=== PATIENT | female | born 1955 | race Caucasian/White ===

== ENCOUNTER 2024-09-27 23:24 | Inpatient (IN) | payer MEDICARE, OTHER, SELFPAY ==
--- NOTE | 2024-09-27 | ECG_ITS ---
Test Reason : LETHARGIC Blood Pressure : */* mmHG Vent. Rate : 91 BPM Atrial Rate : 91 BPM P-R Int : 168 ms QRS Dur : 94 ms QT Int : 360 ms P-R-T Axes : 63 -26 56 degrees QTcB Int : 442 ms Normal sinus rhythm Normal ECG No previous ECGs available Referred By: Generic ED Physician Electronically Signed By: FRANCISCO CRUZ MD
--- NOTE | ~2024-09-27 | XR_ITS ---
CLINICAL HISTORY: ams, weakness 1 view chest x-ray Comparison: None Findings: The lungs are clear. Normal size heart. No acute fracture. IMPRESSION: 1. No acute findings. This document has been electronically signed by: Erasmo Domingo MD on 09/28/2024 00:39:51
--- NOTE | ~2024-09-27 | CT_ITS ---
CLINICAL HISTORY: AMS, weakness CT head without contrast Comparison: None Findings: No intracranial hemorrhage, mass effect or midline shift. There is encephalomalacia in the right frontal lobe with ex vacuo dilatation of the right frontal horn. Mild cerebral atrophy and compensatory ventriculomegaly. Mild low attenuation in the periventricular white matter consistent with chronic small-vessel ischemic gliosis. Mucosal thickening of the maxillary and ethmoid cells mucosal thickening of the sphenoid sinuses. The orbits are within normal limits. There is no acute fracture. IMPRESSION: 1. No acute intracranial findings. 2. Encephalomalacia in the right frontal lobe consistent with prior stroke. This document has been electronically signed by: Erasmo Domingo MD on 09/28/2024 00:48:50
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
[2024-09-27 23:45] VITALS: BP 115/60; BP 123/48; PULSE 92; PULSE 93; RESP 22; TEMP 37.2; O2SAT 92; O2SAT 93; BMI 29.3
[2024-09-28] VITALS (11 sets, daily range): BP systolic 105–134; BP diastolic 38–60; PULSE 78–121; RESP 18–24; TEMP 36.9–37.6; O2SAT 94–98
[2024-09-28 00:11] LABS: MANUAL DIFF FLAG NO
[2024-09-28 00:15] LABS: Basophils Percent Auto 0.2 % (0-2); Eosinophils Percent Auto 0.5 % (0-4); Hematocrit 37.4 % (37.0-47.0); Hemoglobin 12.4 g/dl (12.0-16.0); Imm Gran Abs Auto 0.04 X10*3/uL (0.00-0.03); Imm Gran Pct Auto 0.9 % (0.0-0.4); Lymphocytes Percent Auto 22.7 % (20-40); Mean Corpuscular HGB Conc 33.2 g/dl (31.0-35.0); Mean Corpuscular Hemoglobin 28.4 pg (27.0-33.0); Mean Corpuscular Volume 85.6 fL (80.0-98.0); Monocytes Absolute Auto 0.8 X10*3/uL (0.1-1.2); Monocytes Percent Auto 19.4 % (2-11); Neutrophils Absolute Auto 2.4 x10*3/uL (2.0-8.3); Neutrophils Percent Auto 56.3 % (45-73); Platelet Count 115 X10*3/uL (160-400); Red Blood Count 4.37 X10*6/uL (4.20-5.50); Red Cell Distribution Width 14.4 % (11.0-16.0); White Blood Count 4.2 X10*3/uL (4.8-10.8)
[2024-09-28 00:28] LABS: Ammonia 49 umol/L (13-55)
[2024-09-28 00:29] LABS: INTERNATIONAL NORM RATIO 1.2 (0.9-1.1); Prothrombin Time 13.5 SEC (10.9-12.4)
[2024-09-28 00:36] LABS: Lactic Acid 1.5 mmol/L (0.5-2.0)
[2024-09-28 00:38] LABS: Alanine Aminotransferase 37 U/L (0-31); Albumin Level 3.5 g/dL (3.5-5.0); Alkaline Phosphatase 55 U/L (39-117); Anion Gap 13 (12-20); Aspartate Amino Transferase 82 U/L (5-31); Bilirubin Total 0.4 mg/dL (0.0-1.0); Blood Urea Nitrogen 17 mg/dL (9-16); Calcium 7.8 mg/dL (8.4-10.2); Carbon Dioxide 22 mmol/L (22-29); Chloride 112 mmol/L (96-108); Creatinine Clr Calc Pharmacy 69.2; Estimated Glomerular Filt Rate > 60; Ethanol < 10 mg/dL; Glucose Random 88 mg/dL (60-115); Lipase 31 U/L (8-78); Magnesium 2.1 mg/dL (1.6-2.6); Potassium 3.6 mmol/L (3.3-5.1); Sodium 143 mmol/L (135-145); Total Protein 6.2 g/dL (6.5-8.0)
[2024-09-28 00:40] LABS: Acetaminophen LAB < 3 mcg/mL (<30); Salicylate < 5.0 mg/dL (15-30)
[2024-09-28 00:59] LABS: Influenza A PCR POSITIVE (Negative); Influenza B PCR NEGATIVE (Negative); Resp Syncy Virus RNA Qual PCR NEGATIVE (Negative); SARS COV2 PCR INHOUSE NEGATIVE (Negative)
--- NOTE | 2024-09-28 02:06 | PM.IMHP ---
History of Present Illness Date of Service: 09/28/24 Attending physician on admission: Carlos Jennings Chief Complaint: Altered mental status, weakness, cough Patient is a 69-year-old female with a past medical history significant for paranoid schizophrenia, epilepsy, DVT not on anticoagulant, COPD, JENSEN no CPAP, HTN, HLD and GERD who presented to the ED from [facility] due to altered mental status, weakness, lethargy and cough. They reported the patient has been incontinent of urine starting yesterday but felt that it was not related to seizures or more likely related to weakness due to illness. Patient denies any urinary symptoms including frequency, urgency or dysuria. She is intermittently confused. She reports a productive cough, sputum color unknown. There is a subjective fever of 101 measured at [facility]. She denies any headache, rhinorrhea, sore throat, ear pain, chest pain, nausea, vomiting, abdominal pain. Patient is unable to return to [facility] until she is off of oxygen, currently requiring 2 L via nasal cannula. Review of Systems Constitutional: Constitutional: Denies body ache(s), Denies chills, Reports fatigue, Reports fever(s) and Denies headache(s) Eyes: Eyes: Denies change in vision and Denies photophobia ENT: Denies headache(s), Denies nasal congestion, Denies nasal discharge and Denies sore throat Cardiovascular: Cardiovascular: Denies chest pain, Denies rapid heart rate, Denies leg edema, Denies lightheadedness and Denies dyspnea Respiratory: Respiratory: Reports chest congestion, Reports cough, Denies pain with cough, Denies dyspnea and Denies wheezing Gastrointestinal: Gastrointestinal: Denies diarrhea, Denies nausea and Denies vomiting Genitourinary: Genitourinary: Denies hematuria, Denies dysuria, Reports urinary incontinence and Denies urinary urgency Musculoskeletal: Musculoskeletal: Denies myalgias and Denies muscle cramps Integumentary/Breasts: Skin/Breast: Denies rash Neurologic: Reports confusion, Denies headache(s) and Denies seizure-like activity Psychiatric: Psychiatric: Reports confusion Endocrine: Endocrine: Reports fatigue Hematologic/Lymphatic: Hematologic/Lymphatic: Denies easy bleeding and Denies easy bruising Allergic/Immunologic: Allergic/Immunologic: Denies wheezing [facility] Medical History (Updated 03/04/25 @ 02:12 by Bhumi Schmidt PA-C) GERD (gastroesophageal reflux disease) HLD (hyperlipidemia) HTN (hypertension) JENSEN (obstructive sleep apnea) COPD (chronic obstructive pulmonary disease) DVT (deep venous thrombosis) Epilepsy Schizophrenia Functional capacity: independent ambulation Social History Advance Directives: No Advance Directives Information Provided: Yes Do you have a plan to hurt others: No Plan Meds Allergies Allergy/AdvReac Type Severity Reaction Status Date / Time codeine Allergy Unknown Verified 09/27/24 23:49 Physical Exam Vital Signs and Narrative: Vital Signs: Last Vital Signs Temp 99.0 F 09/28/24 00:24 Pulse 92 09/28/24 00:24 Resp 23 H 09/28/24 00:24 BP 122/47 L 09/28/24 00:24 Pulse Ox 94 09/28/24 00:24 O2 Del Method Nasal Cannula 09/28/24 00:24 O2 Flow Rate 2 09/28/24 00:24 Oxygen Flow Rate 2 09/27/24 23:45 BMI result Body Mass Index 29.3 General: Alert, oriented to person and date, unaware of place, no acute distress Resp: rhonchi bilaterally, no wheezing CVS: mild tachycardia, normal rhythm GI: +BS, NT, no distention Skin: Warm, dry Neuro: Cranial nerves II-XII grossly intact bilaterally. Motor grossly intact bilaterally Extremities: No LE edema Psych: Appropriate affect Const: General: confusion Orientation/consciousness: confusion Eyes: Direct Ophthalmoscopy: No photophobia Neuro: General: confusion Results Labs 09/28/24 00:01 09/28/24 00:01 Labs: Laboratory Results - last 24 hr 09/28/24 09/28/24 09/28/24 00:01 00:02 00:17 MCV 85.6 MCH 28.4 MCHC 33.2 RDW 14.4 Plt Count 115 L MPV 10.0 Immature Gran % (Auto) 0.9 H Neut % (Auto) 56.3 Lymph % (Auto) 22.7 [place] % (Auto) 19.4 H Eos % (Auto) 0.5 Baso % (Auto) 0.2 Lymph # (Auto) 1.0 L [place] # (Auto) 0.8 Eos # (Auto) 0.0 Baso # (Auto) 0.0 Abs Immat Gran (auto) 0.04 H Absolute Neuts (auto) 2.4 Absolute Nucleated RBC 0.000 Nucleated RBC % (auto) 0.0 PT 13.5 H INR 1.2 H Anion Gap 13 Estim Creat Clear Calc 69.2 Estimated GFR > 60 Random Glucose 88 Lactic Acid 1.5 Calcium 7.8 L Magnesium 2.1 Total Bilirubin 0.4 AST 82 H ALT 37 H Alkaline Phosphatase 55 Ammonia 49 Total Protein 6.2 L Albumin 3.5 Lipase 31 Salicylates < 5.0 L Acetaminophen < 3 Ethyl Alcohol < 10 Influenza Type A (PCR) POSITIVE A Influenza Type B (PCR) NEGATIVE RSV RNA Qual (PCR) NEGATIVE SARS-CoV-2 RNA (RT-PCR) NEGATIVE Assessment and Plan (1) Sepsis: Status: Acute (2) Acute hypoxemic respiratory failure: Status: Acute (3) Metabolic encephalopathy: Status: Acute (4) Influenza A: Status: Acute Plan Patient is a 69-year-old female with a past medical history significant for paranoid schizophrenia, epilepsy, DVT not on anticoagulant, COPD, JENSEN no CPAP, HTN, HLD and GERD presented to the ED from [facility] due to altered mental status, weakness, lethargy and cough. Viral sepsis, acute hypoxic respiratory failure and acute metabolic encephalopathy secondary to influenza A - WBC 4.2 tachycardic, tachypneic and subjective fever 101, blood cultures x2 pending, lactic acid normal - chest x-ray negative - flu A positive - CT negative - ammonia normal, LFTs mildly elevated, likely fatty liver disease - UA negative - new oxygen requirement, titrate off as appropriate - start Tamiflu 75mg b.i.d. - monitor CBC and BMP Epilepsy - no evidence of recent seizure, lactic acid normal - continue Keppra 500 mg BID and Depakote 500 mg BID Schizophrenia/mood disorder - continue hydroxyzine 50 mg q.4h as needed for anxiety,, risperidone 2 mg bedtime, clozapine 100 mg at bedtime, benztropine 0.5 mg BID hx DVT - no LE edema or pleuritic chest pain - lovenox for VTE prophylaxis COPD, no acute exacerbation - no wheezing on exam JENSEN - no CPAP HTN - no home meds HLD - no home meds presumed full code, no contact info and no MOLST in transfer paperwork, pt confused, unable to determine at this time VTE prophy: lovenox Patient with sepsis, acute hypoxic respiratory failure and metabolic encephalopathy, requiring admission for at least 2 midnights stay for monitoring and titration off of oxygen, required for readmission to psychiatric facility. Quality Stroke Does the patient have a stroke diagnosis?: No VTE Prior VTE?: No VTE Risk Level:: Medical - moderate - high VTE Device Contraindication: Treatment Not Indicated VTE Drug Contraindication: N/A - Med Ordered
[2024-09-28] MEDS: Enoxaparin Sodium 40 MG/0.4 ML SYRINGE SUBCUT (03:31)
[2024-09-28] MEDS: 0.9 % Sodium Chloride 1,000 ML 999 ML IV (03:31)
[2024-09-28 03:33] LABS: Appearance Urine Clear; Color Urine Yellow; Glucose Urine UA Negative (Negative); Leukocyte Esterase Urine Small (1+) (Negative); Nitrite Urine Negative (Negative); PH 5.5 (5.0-9.0); Specific Gravity - Urine 1.025 (1.005-1.025); UMIC TRIGGER UACC YES; Urine Blood Trace (Negative); Urine Ketones 15 mg/dL (Negative); Urine Protein Trace mg/dL (Neg-Trace)
[2024-09-28 03:36] LABS: Bacteria Urine None Seen (None Seen); Hyaline Casts Urine 0-2 /LPF (0-2); UACC Culture Trigger YES; WBC Urine 21-50 /HPF (0-5)
[2024-09-28 03:48] LABS: Amphetamine Screen Urine Not Detected (Not Detect); Barbiturates, Urine Not Detected (Not Detect); Benzodiazepines Screen Urine Not Detected (Not Detect); Buprenorphine Scr Not Detected (Not Detect); Cannabinoid Screen Urine Not Detected (Not Detect); Cocaine Screen Urine Not Detected (Not Detect); Fentanyl, urine Not Detected (Not Detect); Methadone Screen, Urine Not Detected (Not Detect); Opiate Screen Urine Not Detected (Not Detect); Oxycodone Screen Urine Not Detected (Not Detect); Phencyclidine Screen Urine Not Detected (Not Detect)
[2024-09-28 05:58] LABS: MANUAL DIFF FLAG NO
[2024-09-28 06:01] LABS: Basophils Percent Auto 0.5 % (0-2); Hematocrit 35.7 % (37.0-47.0); Hemoglobin 11.5 g/dl (12.0-16.0); Imm Gran Abs Auto 0.03 X10*3/uL (0.00-0.03); Imm Gran Pct Auto 0.8 % (0.0-0.4); Lymphocytes Absolute Auto 1.2 X10*3/uL (1.2-4.9); Lymphocytes Percent Auto 29.6 % (20-40); Mean Corpuscular HGB Conc 32.2 g/dl (31.0-35.0); Mean Corpuscular Hemoglobin 27.6 pg (27.0-33.0); Mean Corpuscular Volume 85.8 fL (80.0-98.0); Mean Platelet Volume 10.1 fL (9.4-12.3); Monocytes Absolute Auto 0.7 X10*3/uL (0.1-1.2); Monocytes Percent Auto 18.6 % (2-11); Neutrophils Percent Auto 50.5 % (45-73); Platelet Count 118 X10*3/uL (160-400); Red Blood Count 4.16 X10*6/uL (4.20-5.50); Red Cell Distribution Width 14.5 % (11.0-16.0)
[2024-09-28 06:16] LABS: Anion Gap 11 (12-20); Blood Urea Nitrogen 16 mg/dL (9-16); Calcium 7.7 mg/dL (8.4-10.2); Carbon Dioxide 22 mmol/L (22-29); Chloride 114 mmol/L (96-108); Creatinine Clr Calc Pharmacy 81.5; Estimated Glomerular Filt Rate > 60; Glucose Random 81 mg/dL (60-115); Potassium 3.8 mmol/L (3.3-5.1); Sodium 143 mmol/L (135-145)
[2024-09-28] MEDS: 0.9 % Sodium Chloride Flush 3 ML SYRINGE IVFLUSH ×2 (08:45→15:42)
[2024-09-28] MEDS: Benztropine Mesylate 0.5 MG TABLET PO ×2 (08:46→21:13)
[2024-09-28] MEDS: Divalproex Sodium ER 500 MG TAB.ER.24H PO ×2 (08:46→21:14)
[2024-09-28] MEDS: Oseltamivir Phosphate 75 MG CAPSULE PO ×2 (08:46→21:13)
[2024-09-28] MEDS: levETIRAcetam 500 MG TABLET PO ×2 (08:46→21:13)
--- NOTE | 2024-09-28 10:02 | PHA.MEDREC ---
Addendum entered by Melissa Mistry RPh 09/28/24 10:12: Reviewed by [facility] Original Note: Pharmacy Consult ? Medication Reconciliation Pharmacy has completed the medication reconciliation. [facility] list from [facility]. They report patient was not continued on it during their admission (adm date 09/23/24). They also confirmed with their pharmacy that patient was not receiving it while there. Rx in claims and home med list from [facility] reports 100 mg tab - 400 mg at bedtime. Left off of med rec and will notify provider.
--- NOTE | 2024-09-28 15:40 | P.PNIM_ITS ---
Subjective Subjective Date of Service: 09/28/24 Interval History: acute metabolic encephalopathy , influenza A Review of Systems seems generlaised weak cough improving Physical Exam 2 Vital Signs: Vital Signs: Last Vital Signs Temp 99.4 F 09/28/24 15:27 Pulse 86 09/28/24 15:27 Resp 18 09/28/24 15:27 BP 116/56 L 09/28/24 15:27 Pulse Ox 97 09/28/24 15:27 O2 Del Method Nasal Cannula 09/28/24 15:27 O2 Flow Rate 2 09/28/24 15:27 Oxygen Flow Rate 2 09/27/24 23:45 BMI result Body Mass Index 29.3 Appearance: Aawke,alert ,generlaised weak cvs: rrr, [id number] res: air entry similar ,has scattered rhonchii b/l. abd: no rebound or guarding ,nt, bs present. ext pulses present , no cyanosis . neuro: axo3 , nonfocal. Objective Data Active Medications Acetaminophen (Acetaminophen 325 Mg Tablet) 975 mg PO Q6H PRN PRN Reason: Pain, Mild 1-3,fever,headache Benzonatate (Benzonatate 100 Mg Capsule) 100 mg PO TID PRN PRN Reason: Cough Benztropine Mesylate (Benztropine Mesylate 0.5 Mg Tablet) 0.5 mg PO BID [facility] Last Admin: 09/28/24 08:46 Dose: 0.5 mg Documented By: ALISON Calcium Carbonate (Calcium Carbonate 750 Mg Tab.Chew) 750 mg PO Q4H PRN PRN Reason: Heartburn Clozapine (Clozapine 100 Mg Tablet) 100 mg PO BEDTIME [facility] Stop: 10/04/24 21:01 Divalproex Sodium (Divalproex Sodium Er 500 Mg Tab.Er.24h) 500 mg PO BID [facility] Last Admin: 09/28/24 08:46 Dose: 500 mg Documented By: ALISON Enoxaparin Sodium (Enoxaparin Sodium 40 Mg/0.4 Ml Syringe) 40 mg SUBCUT Q24H [facility] Last Admin: 09/28/24 03:31 Dose: 40 mg Documented By: PATRIA Hydroxyzine HCl (Hydroxyzine Hcl 50 Mg Tablet) 50 mg PO Q4H PRN PRN Reason: Anxiety Levetiracetam (Levetiracetam 500 Mg Tablet) 500 mg PO BID [facility] Last Admin: 09/28/24 08:46 Dose: 500 mg Documented By: ALISON Magnesium Hydroxide (Milk Of Magnesia 30 Ml Oral.Susp) 30 ml PO DAILY PRN PRN Reason: Constipation Melatonin (Melatonin 3 Mg Tablet) 6 mg PO BEDTIME PRN PRN Reason: Insomnia Ondansetron HCl (Ondansetron Hcl 4 Mg/2 Ml Vial) 4 mg IVPUSH Q8H PRN PRN Reason: Nausea and Vomiting Oseltamivir Phosphate (Oseltamivir Phosphate 75 Mg Capsule) 75 mg PO BID [facility] Stop: 10/02/24 21:01 Last Admin: 09/28/24 08:46 Dose: 75 mg Documented By: ALISON Risperidone (Risperidone 2 Mg Tablet) 2 mg PO BEDTIME [facility] Sodium Chloride (0.9 % Sodium Chloride Flush 3 Ml Syringe) 3 ml IVFLUSH QSHIFT [facility] Last Admin: 09/28/24 08:45 Dose: 3 ml Documented By: ALISON Labs 09/28/24 05:39 09/28/24 05:39 Labs: Laboratory Results - last 24 hr 09/28/24 09/28/24 09/28/24 00:01 00:02 00:17 MCV 85.6 MCH 28.4 MCHC 33.2 RDW 14.4 Plt Count 115 L MPV 10.0 Immature Gran % (Auto) 0.9 H Neut % (Auto) 56.3 Lymph % (Auto) 22.7 [place] % (Auto) 19.4 H Eos % (Auto) 0.5 Baso % (Auto) 0.2 Lymph # (Auto) 1.0 L [place] # (Auto) 0.8 Eos # (Auto) 0.0 Baso # (Auto) 0.0 Abs Immat Gran (auto) 0.04 H Absolute Neuts (auto) 2.4 Absolute Nucleated RBC 0.000 Nucleated RBC % (auto) 0.0 PT 13.5 H INR 1.2 H Anion Gap 13 Estim Creat Clear Calc 69.2 Estimated GFR > 60 Random Glucose 88 Lactic Acid 1.5 Calcium 7.8 L Magnesium 2.1 Total Bilirubin 0.4 AST 82 H ALT 37 H Alkaline Phosphatase 55 Ammonia 49 Total Protein 6.2 L Albumin 3.5 Lipase 31 Urine Color Urine Appearance Urine pH Ur Specific [place] Urine Protein Urine Glucose (UA) Urine Ketones Urine Blood Urine Nitrite Ur Leukocyte Esterase Urine RBC Urine WBC Ur Squamous Epith Cells Urine Bacteria Hyaline Casts Salicylates < 5.0 L Urine Opiates Screen Ur Buprenorphine Scrn Ur Oxycodone Screen Urine Methadone Screen Urine Fentanyl Screen Acetaminophen < 3 Ur Barbiturates Screen Ur Phencyclidine Scrn Ur Amphetamines Screen U Benzodiazepines Scrn Urine Cocaine Screen U Marijuana (THC) Screen Ethyl Alcohol < 10 Influenza Type A (PCR) POSITIVE A Influenza Type B (PCR) NEGATIVE RSV RNA Qual (PCR) NEGATIVE SARS-CoV-2 RNA (RT-PCR) NEGATIVE 09/28/24 09/28/24 03:27 05:39 MCV 85.8 MCH 27.6 MCHC 32.2 RDW 14.5 Plt Count 118 L MPV 10.1 Immature Gran % (Auto) 0.8 H Neut % (Auto) 50.5 Lymph % (Auto) 29.6 [place] % (Auto) 18.6 H Eos % (Auto) 0.0 Baso % (Auto) 0.5 Lymph # (Auto) 1.2 [place] # (Auto) 0.7 Eos # (Auto) 0.0 Baso # (Auto) 0.0 Abs Immat Gran (auto) 0.03 Absolute Neuts (auto) 2.0 Absolute Nucleated RBC 0.000 Nucleated RBC % (auto) 0.0 PT INR Anion Gap 11 L Estim Creat Clear Calc 81.5 Estimated GFR > 60 Random Glucose 81 Lactic Acid Calcium 7.7 L Magnesium Total Bilirubin AST ALT Alkaline Phosphatase Ammonia Total Protein Albumin Lipase Urine Color Yellow Urine Appearance Clear Urine pH 5.5 Ur Specific [place] 1.025 Urine Protein Trace Urine Glucose (UA) Negative Urine Ketones 15 Urine Blood Trace H Urine Nitrite Negative Ur Leukocyte Esterase Small (1+) H Urine RBC 3-5 H Urine WBC 21-50 H Ur Squamous Epith Cells 6-10 Urine Bacteria None Seen Hyaline Casts 0-2 Salicylates Urine Opiates Screen Not Detected Ur Buprenorphine Scrn Not Detected Ur Oxycodone Screen Not Detected Urine Methadone Screen Not Detected Urine Fentanyl Screen Not Detected Acetaminophen Ur Barbiturates Screen Not Detected Ur Phencyclidine Scrn Not Detected Ur Amphetamines Screen Not Detected U Benzodiazepines Scrn Not Detected Urine Cocaine Screen Not Detected U Marijuana (THC) Screen Not Detected Ethyl Alcohol Influenza Type A (PCR) Influenza Type B (PCR) RSV RNA Qual (PCR) SARS-CoV-2 RNA (RT-PCR) Assessment and Plan (1) Metabolic encephalopathy: Status: Acute Assessment and Plan: 69-year-old female with a past medical history significant for paranoid schizophrenia, epilepsy, DVT not on anticoagulant, COPD, JENSEN no CPAP, HTN, HLD and GERD presented to the ED from [facility] due to altered mental status, weakness, lethargy and cough. Viral sepsis, acute hypoxic respiratory failure and acute metabolic encephalopathy secondary to influenza A WBC 4 tachycardic, tachypneic seems improved(viral sepsis seems improving). blood cultures x2 pending, lactic acid normal chest x-ray negative,flu A positive,CT negative,ammonia normal, UA negative LFTs mildly thought to be elevated sec to possible fatty liver disease. plan: - start Tamiflu 75mg b.i.d.,taper oxygen - monitor CBC and BMP Epilepsy - no evidence of recent seizure, lactic acid normal - continue Keppra 500 mg BID and Depakote 500 mg BID Schizophrenia/mood disorder - continue hydroxyzine 50 mg q.4h as needed for anxiety,, risperidone 2 mg bedtime, clozapine 100 mg at bedtime, benztropine 0.5 mg BID hx DVT - no LE edema or pleuritic chest pain - lovenox for VTE prophylaxis COPD, no acute exacerbation - no wheezing on exam JENSEN - no CPAP HTN - no home meds HLD - no home meds VTE prophy: lovenox ongoing need viral sepsis, acute hypoxic respiratory failure and metabolic encephalopathy-ongoing need for monitoring and titration off of oxygen, required for readmission to psychiatric facility. Quality Stroke Does the patient have a stroke diagnosis?: No VTE Prior VTE?: No VTE Risk Level:: Medical - moderate - high VTE Device Contraindication: Treatment Not Indicated VTE Drug Contraindication: N/A - Med Ordered
--- NOTE | 2024-09-28 15:56 | PC.NURSE ---
Pt ate breakfast and lunch with no issues. Took her morning meds whole with no issues. NSR on bedside manager monitoring, maintaining sat >94% on 2L NC O2. Pt denying any pain. Used bed duvall for urinating.
--- NOTE | 2024-09-28 15:57 | MHC.CM.PN ---
Pt. came to us from [facility] psych hosp. CM spoke to pt., she is confused, could not say where she came to hosp. from. She said she does not have any family or guardian. She is from [facility]. She could not say who her PCP is. CM called [facility], could not reach anyone there. DCP is for pt. to return to [facility]. CM to follow for DC planning.
[2024-09-28 16:12] LABS: Alanine Aminotransferase 35 U/L (0-31); Albumin Level 3.2 g/dL (3.5-5.0); Aspartate Amino Transferase 91 U/L (5-31); Bilirubin Direct 0.1 mg/dL (0.0-0.5); Bilirubin Total 0.3 mg/dL (0.0-1.0); Total Protein 5.7 g/dL (6.5-8.0)
[2024-09-28 16:22] LABS: Alkaline Phosphatase 48 U/L (39-117)
--- NOTE | 2024-09-28 20:14 | PC.NURSE ---
pt resting in stretcher, no sign of distress at the time.
--- NOTE | 2024-09-28 20:45 | MHC.EDTECH ---
Changed O2 tank
[2024-09-28] MEDS: Melatonin 3 MG TABLET 6 MG PO (21:12)
[2024-09-28] MEDS: cloZAPine 100 MG TABLET PO (21:12)
[2024-09-28] MEDS: risperiDONE 2 MG TABLET PO (21:13)
[2024-09-28] MEDS: Benzonatate 100 MG CAPSULE PO (21:13)
--- NOTE | 2024-09-28 21:18 | PC.NURSE ---
medicated per mar.
[2024-09-29] VITALS (11 sets, daily range): BP systolic 103–177; BP diastolic 37–57; PULSE 76–95; RESP 16–28; TEMP 36–38.4; O2SAT 90–97
[2024-09-29] MEDS: Enoxaparin Sodium 40 MG/0.4 ML SYRINGE SUBCUT (02:40)
[2024-09-29] MEDS: 0.9 % Sodium Chloride Flush 3 ML SYRINGE IVFLUSH ×3 (02:40→15:52)
--- NOTE | 2024-09-29 05:51 | PC.NURSE ---
pt incontinent of urine, complete bed change and per care.
[2024-09-29] MEDS: Acetaminophen 325 MG TABLET 975 MG PO ×3 (06:08→19:51)
[2024-09-29 06:09] LABS: Anion Gap 14 (12-20); Blood Urea Nitrogen 16 mg/dL (9-16); Calcium 8.5 mg/dL (8.4-10.2); Carbon Dioxide 21 mmol/L (22-29); Chloride 109 mmol/L (96-108); Creatinine Clr Calc Pharmacy 73.6; Estimated Glomerular Filt Rate > 60; Glucose Random 96 mg/dL (60-115); Potassium 4.3 mmol/L (3.3-5.1); Sodium 140 mmol/L (135-145)
--- NOTE | 2024-09-29 06:12 | PC.NURSE ---
pt oral temp 101. medicated per sep. pt given some andrew eladia.
[2024-09-29 06:26] LABS: Basophils Percent Auto 0.2 % (0-2); Hemoglobin 12.6 g/dl (12.0-16.0); Imm Gran Abs Auto 0.04 X10*3/uL (0.00-0.03); Mean Platelet Volume 11.2 fL (9.4-12.3); PLT CLUMP 1; Red Cell Distribution Width 14.3 % (11.0-16.0); SCAN SMEAR FLAG 1
[2024-09-29 06:28] LABS: Hematocrit 38.7 % (37.0-47.0); Imm Gran Pct Auto 0.8 % (0.0-0.4); Lymphocytes Absolute Auto 1.2 X10*3/uL (1.2-4.9); Lymphocytes Percent Auto 23.2 % (20-40); Mean Corpuscular HGB Conc 32.6 g/dl (31.0-35.0); Mean Corpuscular Hemoglobin 28.1 pg (27.0-33.0); Mean Corpuscular Volume 86.2 fL (80.0-98.0); Monocytes Absolute Auto 0.7 X10*3/uL (0.1-1.2); Monocytes Percent Auto 13.8 % (2-11); NRBC Pct Auto 0.4 /100WBC (0.0-0.2); Neutrophils Absolute Auto 3.3 x10*3/uL (2.0-8.3); Red Blood Count 4.49 X10*6/uL (4.20-5.50)
[2024-09-29 06:29] LABS: MANUAL DIFF FLAG NO; White Blood Count 5.3 X10*3/uL (4.8-10.8)
[2024-09-29 07:33] LABS: Platelet Count 91 X10*3/uL (160-400)
--- NOTE | 2024-09-29 09:28 | MHC.CM.PN ---
CM spoke to pt.'s contact: Carmita Russo [phone] today. Carmita was on a HCP form, but said there may be other forms around as well. She was able to give some background info on pt. Pt. was living in a rest [facility], in [place], but her mental health was not stable and she was hospitalized in that area. Carmita does not know how pt. ended up in this area. She has known pt. for some time and feels that she did not have enough support / structure to manage her mental health in the [facility]. She is in agreement with [facility] to have pt. return to [facility] [place].
[2024-09-29] MEDS: Oseltamivir Phosphate 75 MG CAPSULE PO (11:39)
[2024-09-29] MEDS: levETIRAcetam 500 MG TABLET PO (11:39)
[2024-09-29] MEDS: Benztropine Mesylate 0.5 MG TABLET PO (11:39)
[2024-09-29] MEDS: Divalproex Sodium ER 500 MG TAB.ER.24H PO (11:39)
--- NOTE | 2024-09-29 11:48 | PC.NURSE ---
Assumed care of this patient at 1100, patient looks to be sleeping on stretcher, easily arousable. AM meds given, 1 @ a time, patient need encouragement. Noted to be incontient of urine, will be changed when space available. O2 tank noted to be empty by previous RN during rounding, patient sating 90% on RA, tank replaced, sating 92 - 93%
--- NOTE | 2024-09-29 17:32 | HO.PM.IMPN ---
Subjective Subjective Date of Service: 09/29/24 Interval History: Acute hypoxemic respiratory failure, metabolic encephalopathy Review of Systems Mental status seems to be improving Still generalized weak Physical Exam Vital Signs: Vital Signs: Last Vital Signs Temp 98.7 F 09/29/24 14:32 Pulse 86 09/29/24 14:32 Resp 18 09/29/24 14:32 BP 110/38 L 09/29/24 14:32 Pulse Ox 94 09/29/24 14:32 O2 Del Method Nasal Cannula 09/29/24 14:32 O2 Flow Rate 2 09/29/24 14:32 Oxygen Flow Rate 2 09/27/24 23:45 BMI result Body Mass Index 29.3 Appearance: Aawke,alert ,generlaised weak cvs: rrr, [id number] res: air entry similar ,has scattered rhonchii b/l. abd: no rebound or guarding ,nt, bs present. ext pulses present , no cyanosis . neuro: axo3 , nonfocal. Objective Data Active Medications Acetaminophen (Acetaminophen 325 Mg Tablet) 975 mg PO Q6H [facility] Last Admin: 09/29/24 11:40 Dose: 975 mg Documented By: GOPAL Benzocaine (Throat Lozenge, Medicated Lozenge) 1 lozenge MUCOUS MEM Q2H PRN PRN Reason: Sore Throat Benzonatate (Benzonatate 100 Mg Capsule) 100 mg PO TID PRN PRN Reason: Cough Last Admin: 09/28/24 21:13 Dose: 100 mg Documented By: RAMIRO Benztropine Mesylate (Benztropine Mesylate 0.5 Mg Tablet) 0.5 mg PO BID [facility] Last Admin: 09/29/24 11:39 Dose: 0.5 mg Documented By: GOPAL Calcium Carbonate (Calcium Carbonate 750 Mg Tab.Chew) 750 mg PO Q4H PRN PRN Reason: Heartburn Clozapine (Clozapine 100 Mg Tablet) 100 mg PO BEDTIME [facility] Stop: 10/04/24 21:01 Last Admin: 09/28/24 21:12 Dose: 100 mg Documented By: RAMIRO Divalproex Sodium (Divalproex Sodium Er 500 Mg Tab.Er.24h) 500 mg PO BID [facility] Last Admin: 09/29/24 11:39 Dose: 500 mg Documented By: GOPAL Docusate Sodium (Docusate Sodium 100 Mg Capsule) 100 mg PO BID PRN PRN Reason: Constipation Enoxaparin Sodium (Enoxaparin Sodium 40 Mg/0.4 Ml Syringe) 40 mg SUBCUT Q24H [facility] Last Admin: 09/29/24 02:40 Dose: 40 mg Documented By: RAMIRO Guaifenesin (Guaifenesin La 600 Mg Tab.Er.12h) 1,200 mg PO BID PRN PRN Reason: Cough Hydroxyzine HCl (Hydroxyzine Hcl 50 Mg Tablet) 50 mg PO Q4H PRN PRN Reason: Anxiety Levetiracetam (Levetiracetam 500 Mg Tablet) 500 mg PO BID [facility] Last Admin: 09/29/24 11:39 Dose: 500 mg Documented By: GOPAL Loperamide HCl (Loperamide Hcl 2 Mg Capsule) 2 mg PO Q6H PRN PRN Reason: Loose Stool Magnesium Hydroxide (Milk Of Magnesia 30 Ml Oral.Susp) 30 ml PO DAILY PRN PRN Reason: Constipation Melatonin (Melatonin 3 Mg Tablet) 6 mg PO BEDTIME PRN PRN Reason: Insomnia Last Admin: 09/28/24 21:12 Dose: 6 mg Documented By: RAMIRO Melatonin (Melatonin 3 Mg Tablet) 3 mg PO BEDTIME PRN PRN Reason: Insomnia Nicotine (Nicotine 21 Mg Patch.Td24) 21 mg TRANSDERMA DAILY PRN PRN Reason: nicotine withdrawl Ondansetron HCl (Ondansetron Hcl 4 Mg/2 Ml Vial) 4 mg IVPUSH Q8H PRN PRN Reason: Nausea and Vomiting Oseltamivir Phosphate (Oseltamivir Phosphate 75 Mg Capsule) 75 mg PO BID [facility] Stop: 10/02/24 21:01 Last Admin: 09/29/24 11:39 Dose: 75 mg Documented By: GOPAL Risperidone (Risperidone 2 Mg Tablet) 2 mg PO BEDTIME [facility] Last Admin: 09/28/24 21:13 Dose: 2 mg Documented By: RAMIRO Senna (Sennosides 8.6 Mg Tablet) 17.2 mg PO DAILY PRN PRN Reason: Constipation Sodium Chloride (0.9 % Sodium Chloride Flush 3 Ml Syringe) 3 ml IVFLUSH QSHIFT [facility] Last Admin: 09/29/24 15:52 Dose: 3 ml Documented By: GOPAL Labs 09/29/24 04:02 09/29/24 04:02 Labs: Laboratory Results - last 24 hr 09/29/24 04:02 MCV 86.2 MCH 28.1 MCHC 32.6 RDW 14.3 Plt Count 91 L MPV 11.2 Immature Gran % (Auto) 0.8 H Neut % (Auto) 62.0 Lymph % (Auto) 23.2 [place] % (Auto) 13.8 H Eos % (Auto) 0.0 Baso % (Auto) 0.2 Lymph # (Auto) 1.2 [place] # (Auto) 0.7 Eos # (Auto) 0.0 Baso # (Auto) 0.0 Abs Immat Gran (auto) 0.04 H Absolute Neuts (auto) 3.3 Absolute Nucleated RBC 0.020 H Nucleated RBC % (auto) 0.4 H Anion Gap 14 Estim Creat Clear Calc 73.6 Estimated GFR > 60 Random Glucose 96 Calcium 8.5 D Microbiology Microbiology Results: Microbiology 09/28/24 Unknown Urine Culture - Final Urine clean catch - Clean Catch Midstream 09/28/24 00:02 Blood Culture - Preliminary Blood - Venous No growth after 24 hours. 09/28/24 00:02 Blood Culture - Preliminary Blood - Venous No growth after 24 hours. Assessment and Plan (1) Metabolic encephalopathy: Status: Acute Assessment and Plan: 69-year-old female with a past medical history significant for paranoid schizophrenia, epilepsy, DVT not on anticoagulant, COPD, JENSEN no CPAP, HTN, HLD and GERD presented to the ED from [facility] due to altered mental status, weakness, lethargy and cough. Viral sepsis, acute hypoxic respiratory failure and acute metabolic encephalopathy secondary to influenza A WBC 4 tachycardic, tachypneic seems improved(viral sepsis seems improving). blood cultures x2 pending, lactic acid normal chest x-ray negative,flu A positive,CT negative,ammonia normal, UA negative LFTs mildly thought to be elevated sec to possible fatty liver disease. plan: - start Tamiflu 75mg b.i.d.,taper oxygen - monitor CBC and BMP Epilepsy - no evidence of recent seizure, lactic acid normal - continue Keppra 500 mg BID and Depakote 500 mg BID Schizophrenia/mood disorder - continue hydroxyzine 50 mg q.4h as needed for anxiety,, risperidone 2 mg bedtime, clozapine 100 mg at bedtime, benztropine 0.5 mg BID hx DVT - no LE edema or pleuritic chest pain - lovenox for VTE prophylaxis COPD, no acute exacerbation - no wheezing on exam JENSEN - no CPAP HTN - no home meds HLD - no home meds VTE prophy: lovenox ongoing need viral sepsis, acute hypoxic respiratory failure and metabolic encephalopathy-ongoing need for monitoring and titration off of oxygen, required for readmission to psychiatric facility. Quality Stroke Does the patient have a stroke diagnosis?: No VTE Prior VTE?: No VTE Risk Level:: Medical - moderate - high VTE Device Contraindication: Treatment Not Indicated VTE Drug Contraindication: N/A - Med Ordered
[2024-09-29] MEDS: guaiFENesin LA 600 MG TAB.ER.12H 1200 MG PO (19:50)
[2024-09-29] MEDS: Benzonatate 100 MG CAPSULE PO (19:51)
[2024-09-30 03:05] VITALS: BP 119/56; PULSE 71; RESP 18; TEMP 36; O2SAT 93
[2024-09-30] MEDS: Acetaminophen 325 MG TABLET 975 MG PO ×4 (03:08→20:38)
[2024-09-30] MEDS: Enoxaparin Sodium 40 MG/0.4 ML SYRINGE SUBCUT (03:09)
[2024-09-30 06:58] LABS: MANUAL DIFF FLAG NO
[2024-09-30 07:08] LABS: Basophils Percent Auto 0.5 % (0-2); Hematocrit 37.4 % (37.0-47.0); Hemoglobin 11.9 g/dl (12.0-16.0); Imm Gran Abs Auto 0.02 X10*3/uL (0.00-0.03); Imm Gran Pct Auto 0.5 % (0.0-0.4); Lymphocytes Absolute Auto 1.1 X10*3/uL (1.2-4.9); Mean Corpuscular HGB Conc 31.8 g/dl (31.0-35.0); Mean Corpuscular Hemoglobin 27.4 pg (27.0-33.0); Mean Corpuscular Volume 86.2 fL (80.0-98.0); Mean Platelet Volume 10.7 fL (9.4-12.3); Monocytes Absolute Auto 0.4 X10*3/uL (0.1-1.2); Monocytes Percent Auto 10.5 % (2-11); Neutrophils Absolute Auto 2.3 x10*3/uL (2.0-8.3); Neutrophils Percent Auto 60.5 % (45-73); Platelet Count 121 X10*3/uL (160-400); Red Blood Count 4.34 X10*6/uL (4.20-5.50); Red Cell Distribution Width 14.3 % (11.0-16.0); White Blood Count 3.8 X10*3/uL (4.8-10.8)
[2024-09-30 07:19] VITALS: BP 111/55; PULSE 78; RESP 18; TEMP 36.2; O2SAT 92
[2024-09-30 07:27] LABS: Blood Urea Nitrogen 18 mg/dL (9-16); Calcium 8.5 mg/dL (8.4-10.2); Creatinine Clr Calc Pharmacy 74.9; Estimated Glomerular Filt Rate > 60; Glucose Random 68 mg/dL (60-115)
[2024-09-30 07:36] LABS: Anion Gap 12 (12-20); Carbon Dioxide 27 mmol/L (22-29); Chloride 106 mmol/L (96-108); Potassium 3.4 mmol/L (3.3-5.1); Sodium 142 mmol/L (135-145)
[2024-09-30] MEDS: Oseltamivir Phosphate 75 MG CAPSULE PO ×2 (08:35→20:39)
[2024-09-30] MEDS: 0.9 % Sodium Chloride Flush 3 ML SYRINGE IVFLUSH ×3 (08:35→20:42)
[2024-09-30] MEDS: levETIRAcetam 500 MG TABLET PO ×2 (08:35→20:39)
[2024-09-30] MEDS: Benztropine Mesylate 0.5 MG TABLET PO ×2 (08:35→20:40)
[2024-09-30] MEDS: Divalproex Sodium ER 500 MG TAB.ER.24H PO ×2 (08:35→20:39)
[2024-09-30 12:00] VITALS: BP 122/60; PULSE 76; RESP 20; TEMP 36.3; O2SAT 95
--- NOTE | 2024-09-30 13:18 | P.PNIM_ITS ---
Subjective Subjective Date of Service: 09/30/24 Interval History: metabolic encephalopathy Review of Systems mental status somewhat improving,generalized weak no fevers Physical Exam 2 Vital Signs: Vital Signs: Last Vital Signs Temp 97.4 F 09/30/24 12:00 Pulse 76 09/30/24 12:00 Resp 20 09/30/24 12:00 BP 122/60 09/30/24 12:00 Pulse Ox 95 09/30/24 12:00 O2 Del Method Nasal Cannula 09/30/24 12:00 O2 Flow Rate 2 09/30/24 12:00 Oxygen Flow Rate 2 09/27/24 23:45 BMI result Body Mass Index 29.3 Appearance: Aawke,alert ,generlaised weak cvs: rrr, [id number] res: air entry similar ,has scattered rhonchii b/l. abd: no rebound or guarding ,nt, bs present. ext pulses present , no cyanosis . neuro: axo3 , nonfocal. Objective Data Active Medications Acetaminophen (Acetaminophen 325 Mg Tablet) 975 mg PO Q6H [facility] Last Admin: 09/30/24 08:34 Dose: 975 mg Documented By: BRIAN Benzocaine (Throat Lozenge, Medicated Lozenge) 1 lozenge MUCOUS MEM Q2H PRN PRN Reason: Sore Throat Benzonatate (Benzonatate 100 Mg Capsule) 100 mg PO TID PRN PRN Reason: Cough Last Admin: 09/29/24 19:51 Dose: 100 mg Documented By: GOPAL Benztropine Mesylate (Benztropine Mesylate 0.5 Mg Tablet) 0.5 mg PO BID [facility] Last Admin: 09/30/24 08:35 Dose: 0.5 mg Documented By: BRIAN Calcium Carbonate (Calcium Carbonate 750 Mg Tab.Chew) 750 mg PO Q4H PRN PRN Reason: Heartburn Clozapine (Clozapine 100 Mg Tablet) 100 mg PO BEDTIME [facility] Stop: 10/04/24 21:01 Last Admin: 09/29/24 23:08 Dose: Not Given Documented By: BERE Non-Admin Reason: Patient Condition Contraindication Divalproex Sodium (Divalproex Sodium Er 500 Mg Tab.Er.24h) 500 mg PO BID [facility] Last Admin: 09/30/24 08:35 Dose: 500 mg Documented By: BRIAN Docusate Sodium (Docusate Sodium 100 Mg Capsule) 100 mg PO BID PRN PRN Reason: Constipation Enoxaparin Sodium (Enoxaparin Sodium 40 Mg/0.4 Ml Syringe) 40 mg SUBCUT Q24H [facility] Last Admin: 09/30/24 03:09 Dose: 40 mg Documented By: BERE Guaifenesin (Guaifenesin [place] 600 Mg Tab.Er.12h) 1,200 mg PO BID PRN PRN Reason: Cough Last Admin: 09/29/24 19:50 Dose: 1,200 mg Documented By: DITOLC Hydroxyzine HCl (Hydroxyzine Hcl 50 Mg Tablet) 50 mg PO Q4H PRN PRN Reason: Anxiety Levetiracetam (Levetiracetam 500 Mg Tablet) 500 mg PO BID [facility] Last Admin: 09/30/24 08:35 Dose: 500 mg Documented By: BRIAN Loperamide HCl (Loperamide Hcl 2 Mg Capsule) 2 mg PO Q6H PRN PRN Reason: Loose Stool Magnesium Hydroxide (Milk Of Magnesia 30 Ml Oral.Susp) 30 ml PO DAILY PRN PRN Reason: Constipation Melatonin (Melatonin 3 Mg Tablet) 6 mg PO BEDTIME PRN PRN Reason: Insomnia Last Admin: 09/28/24 21:12 Dose: 6 mg Documented By: RAMIRO Melatonin (Melatonin 3 Mg Tablet) 3 mg PO BEDTIME PRN PRN Reason: Insomnia Nicotine (Nicotine 21 Mg Patch.Td24) 21 mg TRANSDERMA DAILY PRN PRN Reason: nicotine withdrawl Ondansetron HCl (Ondansetron Hcl 4 Mg/2 Ml Vial) 4 mg IVPUSH Q8H PRN PRN Reason: Nausea and Vomiting Oseltamivir Phosphate (Oseltamivir Phosphate 75 Mg Capsule) 75 mg PO BID [facility] Stop: 10/02/24 21:01 Last Admin: 09/30/24 08:35 Dose: 75 mg Documented By: BRIAN Risperidone (Risperidone 2 Mg Tablet) 2 mg PO BEDTIME [facility] Last Admin: 09/29/24 23:09 Dose: Not Given Documented By: BERE Non-Admin Reason: Patient Condition Contraindication Senna (Sennosides 8.6 Mg Tablet) 17.2 mg PO DAILY PRN PRN Reason: Constipation Sodium Chloride (0.9 % Sodium Chloride Flush 3 Ml Syringe) 3 ml IVFLUSH QSHIFT [facility] Last Admin: 09/30/24 08:35 Dose: 3 ml Documented By: BRIAN Labs 09/30/24 05:19 09/30/24 05:19 Labs: Laboratory Results - last 24 hr 09/30/24 05:19 MCV 86.2 MCH 27.4 MCHC 31.8 RDW 14.3 Plt Count 121 L D MPV 10.7 Immature Gran % (Auto) 0.5 H Neut % (Auto) 60.5 Lymph % (Auto) 28.0 [place] % (Auto) 10.5 Eos % (Auto) 0.0 Baso % (Auto) 0.5 Lymph # (Auto) 1.1 L [place] # (Auto) 0.4 Eos # (Auto) 0.0 Baso # (Auto) 0.0 Abs Immat Gran (auto) 0.02 Absolute Neuts (auto) 2.3 Absolute Nucleated RBC 0.000 Nucleated RBC % (auto) 0.0 Anion Gap 12 Estim Creat Clear Calc 74.9 Estimated GFR > 60 Random Glucose 68 Calcium 8.5 Microbiology Microbiology Results: Microbiology 09/28/24 00:02 Blood Culture - Preliminary Blood - Venous No growth after 48 hours. 09/28/24 00:02 Blood Culture - Preliminary Blood - Venous No growth after 48 hours. 09/28/24 Unknown Urine Culture - Final Urine clean catch - Clean Catch Midstream Assessment and Plan (1) Metabolic encephalopathy: Status: Acute (2) Sepsis: Status: Acute Plan 69-year-old female with a past medical history significant for paranoid schizophrenia, epilepsy, DVT not on anticoagulant, COPD, JENSEN no CPAP, HTN, HLD and GERD presented to the ED from [facility] due to altered mental status, weakness, lethargy and cough. Viral sepsis, acute hypoxic respiratory failure and acute metabolic encephalopathy secondary to influenza A WBC 4 tachycardic, tachypneic seems improved(viral sepsis seems improving). blood cultures x2 pending, lactic acid normal chest x-ray negative,flu A positive,CT negative,ammonia normal, UA negative LFTs mildly thought to be elevated sec to possible fatty liver disease. plan: - start Tamiflu 75mg b.i.d.,taper oxygen - monitor CBC and BMP Epilepsy - no evidence of recent seizure, lactic acid normal - continue Keppra 500 mg BID and Depakote 500 mg BID Schizophrenia/mood disorder - continue hydroxyzine 50 mg q.4h as needed for anxiety,, risperidone 2 mg bedtime, clozapine 100 mg at bedtime, benztropine 0.5 mg BID hx DVT - no LE edema or pleuritic chest pain - lovenox for VTE prophylaxis COPD, no acute exacerbation - no wheezing on exam JENSEN - no CPAP HTN - no home meds HLD - no home meds VTE prophy: lovenox ongoing need viral sepsis, acute hypoxic respiratory failure and metabolic encephalopathy-ongoing need for monitoring and titration off of oxygen, required for readmission to psychiatric facility. Quality Stroke Does the patient have a stroke diagnosis?: No VTE Prior VTE?: No VTE Risk Level:: Medical - moderate - high VTE Device Contraindication: Treatment Not Indicated VTE Drug Contraindication: N/A - Med Ordered
[2024-09-30 15:10] VITALS: BP 119/58; PULSE 77; RESP 14; TEMP 36.6; O2SAT 93
[2024-09-30 18:58] VITALS: BP 115/54; PULSE 67; RESP 15; TEMP 36.6; O2SAT 93
[2024-09-30] MEDS: cloZAPine 100 MG TABLET PO (20:39)
[2024-09-30] MEDS: risperiDONE 2 MG TABLET PO (20:39)
[2024-10-01] VITALS: BP 126/61; PULSE 77; RESP 16; TEMP 36.3; O2SAT 93
[2024-10-01] MEDS: Enoxaparin Sodium 40 MG/0.4 ML SYRINGE SUBCUT (03:46)
[2024-10-01 04:00] VITALS: BP 113/55; PULSE 74; RESP 16; TEMP 36.2; O2SAT 97
[2024-10-01 07:05] VITALS: BP 124/60; PULSE 82; RESP 17; TEMP 37.1; O2SAT 92
[2024-10-01] MEDS: levETIRAcetam 500 MG TABLET PO ×2 (08:11→20:05)
[2024-10-01] MEDS: Benztropine Mesylate 0.5 MG TABLET PO ×2 (08:11→20:05)
[2024-10-01] MEDS: guaiFENesin LA 600 MG TAB.ER.12H 1200 MG PO (08:11)
[2024-10-01] MEDS: Acetaminophen 325 MG TABLET 975 MG PO ×2 (08:11→20:05)
[2024-10-01] MEDS: Oseltamivir Phosphate 75 MG CAPSULE PO ×2 (08:11→20:05)
[2024-10-01] MEDS: Divalproex Sodium ER 500 MG TAB.ER.24H PO ×2 (08:11→20:05)
[2024-10-01] MEDS: 0.9 % Sodium Chloride Flush 3 ML SYRINGE IVFLUSH ×3 (08:14→20:09)
[2024-10-01 12:00] VITALS: BP 118/59; PULSE 80; RESP 17; TEMP 36.6; O2SAT 92
--- NOTE | 2024-10-01 13:01 | MHC.CM.PN ---
PER MD ROUNDS PATIENT NOT MEDICALLY CLEARED FOR DC. WILL NEED CARE TEAM EVAL WHEN MEDICALLY CLEARED.
--- NOTE | 2024-10-01 13:59 | P.PNIM_ITS ---
Subjective Subjective Date of Service: 10/01/24 Interval History: metabolic encephalopathy,influenza A Review of Systems mental seems somewhat improving not near baseline sob improving Physical Exam 2 Vital Signs: Vital Signs: Last Vital Signs Temp 98 F 10/01/24 12:00 Pulse 80 10/01/24 12:00 Resp 17 10/01/24 12:00 BP 118/59 L 10/01/24 12:00 Pulse Ox 92 10/01/24 12:00 O2 Del Method Nasal Cannula 10/01/24 12:00 O2 Flow Rate 2 10/01/24 12:00 Oxygen Flow Rate 2 09/27/24 23:45 BMI result Body Mass Index 29.3 Appearance: Aawke,alert ,generlaised weak cvs: [id number], [id number] res: air entry similar to yesterday. abd: no rebound or guarding ,nt, bs present. ext pulses present , no cyanosis . neuro: nonfocal. Objective Data Active Medications Acetaminophen (Acetaminophen 325 Mg Tablet) 975 mg PO Q6H [facility] Last Admin: 10/01/24 08:11 Dose: 975 mg Documented By: BRIAN Benzocaine (Throat Lozenge, Medicated Lozenge) 1 lozenge MUCOUS MEM Q2H PRN PRN Reason: Sore Throat Benzonatate (Benzonatate 100 Mg Capsule) 100 mg PO TID PRN PRN Reason: Cough Last Admin: 09/29/24 19:51 Dose: 100 mg Documented By: GOPAL Benztropine Mesylate (Benztropine Mesylate 0.5 Mg Tablet) 0.5 mg PO BID [facility] Last Admin: 10/01/24 08:11 Dose: 0.5 mg Documented By: BRIAN Calcium Carbonate (Calcium Carbonate 750 Mg Tab.Chew) 750 mg PO Q4H PRN PRN Reason: Heartburn Clozapine (Clozapine 100 Mg Tablet) 100 mg PO BEDTIME [facility] Stop: 10/04/24 21:01 Last Admin: 09/30/24 20:39 Dose: 100 mg Documented By: BERE Divalproex Sodium (Divalproex Sodium Er 500 Mg Tab.Er.24h) 500 mg PO BID [facility] Last Admin: 10/01/24 08:11 Dose: 500 mg Documented By: BRIAN Docusate Sodium (Docusate Sodium 100 Mg Capsule) 100 mg PO BID PRN PRN Reason: Constipation Enoxaparin Sodium (Enoxaparin Sodium 40 Mg/0.4 Ml Syringe) 40 mg SUBCUT Q24H [facility] Last Admin: 10/01/24 03:46 Dose: 40 mg Documented By: BERE Guaifenesin (Guaifenesin La 600 Mg Tab.Er.12h) 1,200 mg PO BID PRN PRN Reason: Cough Last Admin: 10/01/24 08:11 Dose: 1,200 mg Documented By: BRIAN Hydroxyzine HCl (Hydroxyzine Hcl 50 Mg Tablet) 50 mg PO Q4H PRN PRN Reason: Anxiety Levetiracetam (Levetiracetam 500 Mg Tablet) 500 mg PO BID [facility] Last Admin: 10/01/24 08:11 Dose: 500 mg Documented By: BRIAN Loperamide HCl (Loperamide Hcl 2 Mg Capsule) 2 mg PO Q6H PRN PRN Reason: Loose Stool Magnesium Hydroxide (Milk Of Magnesia 30 Ml Oral.Susp) 30 ml PO DAILY PRN PRN Reason: Constipation Melatonin (Melatonin 3 Mg Tablet) 6 mg PO BEDTIME PRN PRN Reason: Insomnia Last Admin: 09/28/24 21:12 Dose: 6 mg Documented By: RAMIRO Melatonin (Melatonin 3 Mg Tablet) 3 mg PO BEDTIME PRN PRN Reason: Insomnia Nicotine (Nicotine 21 Mg Patch.Td24) 21 mg TRANSDERMA DAILY PRN PRN Reason: nicotine withdrawl Ondansetron HCl (Ondansetron Hcl 4 Mg/2 Ml Vial) 4 mg IVPUSH Q8H PRN PRN Reason: Nausea and Vomiting Oseltamivir Phosphate (Oseltamivir Phosphate 75 Mg Capsule) 75 mg PO BID [facility] Stop: 10/02/24 21:01 Last Admin: 10/01/24 08:11 Dose: 75 mg Documented By: BRIAN Risperidone (Risperidone 2 Mg Tablet) 2 mg PO BEDTIME [facility] Last Admin: 09/30/24 20:39 Dose: 2 mg Documented By: BERE Senna (Sennosides 8.6 Mg Tablet) 17.2 mg PO DAILY PRN PRN Reason: Constipation Sodium Chloride (0.9 % Sodium Chloride Flush 3 Ml Syringe) 3 ml IVFLUSH QSHIFT [facility] Last Admin: 10/01/24 08:14 Dose: 3 ml Documented By: BRIAN Labs 09/30/24 05:19 09/30/24 05:19 Assessment and Plan (1) Metabolic encephalopathy: Status: Acute (2) Sepsis: Status: Acute Assessment and Plan: 69-year-old female with a past medical history significant for paranoid schizophrenia, epilepsy, DVT not on anticoagulant, COPD, JENSEN no CPAP, HTN, HLD and GERD presented to the ED from [facility] due to altered mental status, weakness, lethargy and cough. Viral sepsis, acute hypoxic respiratory failure and acute metabolic encephalopathy secondary to influenza A WBC 4 tachycardic, tachypneic seems improved(viral sepsis seems improving). blood cultures x2 pending, lactic acid normal chest x-ray negative,flu A positive,CT negative,ammonia normal, UA negative LFTs mildly thought to be elevated sec to possible fatty liver disease. plan:continue Tamiflu ,taper oxygen,oob ,incentive sprio, chest physio, nebs prn Epilepsy - no evidence of recent seizure, lactic acid normal - continue Keppra 500 mg BID and Depakote 500 mg BID Schizophrenia/mood disorder - continue hydroxyzine 50 mg q.4h as needed for anxiety,, risperidone 2 mg bedtime, clozapine 100 mg at bedtime, benztropine 0.5 mg BID hx DVT - no LE edema or pleuritic chest pain - lovenox for VTE prophylaxis COPD, no acute exacerbation - no wheezing on exam JENSEN - no CPAP HTN - no home meds HLD - no home meds VTE prophy: lovenox ongoing need viral sepsis, acute hypoxic respiratory failure and metabolic encephalopathy-ongoing need for monitoring and titration off of oxygen, required for readmission to psychiatric facility. Quality Stroke Does the patient have a stroke diagnosis?: No VTE Prior VTE?: No VTE Risk Level:: Medical - moderate - high VTE Device Contraindication: Treatment Not Indicated VTE Drug Contraindication: N/A - Med Ordered
[2024-10-01 15:22] VITALS: BP 108/55; PULSE 70; RESP 18; TEMP 36.6; O2SAT 92
[2024-10-01 19:17] VITALS: BP 122/56; PULSE 74; RESP 18; TEMP 36.6; O2SAT 93
[2024-10-01] MEDS: cloZAPine 100 MG TABLET PO (20:05)
[2024-10-01] MEDS: risperiDONE 2 MG TABLET PO (20:05)
[2024-10-02] VITALS (9 sets, daily range): BP systolic 107–131; BP diastolic 51–97; PULSE 76–86; RESP 16–20; TEMP 36.2–36.8; O2SAT 87–93
[2024-10-02] MEDS: Enoxaparin Sodium 40 MG/0.4 ML SYRINGE SUBCUT (04:54)
[2024-10-02] MEDS: levETIRAcetam 500 MG TABLET PO ×2 (08:54→19:52)
[2024-10-02] MEDS: Acetaminophen 325 MG TABLET 975 MG PO ×3 (08:54→19:54)
[2024-10-02] MEDS: Benztropine Mesylate 0.5 MG TABLET PO ×2 (08:55→19:52)
[2024-10-02] MEDS: Divalproex Sodium ER 500 MG TAB.ER.24H PO ×2 (08:55→19:51)
[2024-10-02] MEDS: Oseltamivir Phosphate 75 MG CAPSULE PO ×2 (08:55→19:51)
[2024-10-02] MEDS: 0.9 % Sodium Chloride Flush 3 ML SYRINGE IVFLUSH ×3 (09:02→19:54)
--- NOTE | 2024-10-02 11:53 | P.PNIM_ITS ---
Subjective Subjective Date of Service: 10/02/24 Interval History: metabolic encephalopathy,influenza A Review of Systems mental status seems to be improved. still hypoxic Physical Exam 2 Vital Signs: Vital Signs: Last Vital Signs Temp 97.9 F 10/02/24 07:59 Pulse 76 10/02/24 07:59 Resp 20 10/02/24 07:59 BP 107/51 L 10/02/24 07:59 Pulse Ox 91 L 10/02/24 10:33 O2 Del Method Nasal Cannula 10/02/24 10:33 O2 Flow Rate 2 10/02/24 07:59 Oxygen Flow Rate 2 09/27/24 23:45 BMI result Body Mass Index 29.3 Appearance: Aawke,alert. cvs: rrr, [id number] res: air entry fair , no rales or wheezing. abd: soft,nt, bs present. ext pulses present , no cyanosis . neuro: nonfocal. Objective Data Active Medications Acetaminophen (Acetaminophen 325 Mg Tablet) 975 mg PO Q6H [facility] Last Admin: 10/02/24 08:54 Dose: 975 mg Documented By: ARNEL Albuterol Sulfate (Albuterol Sulfate 90 Mcg 8 Gm Inhaler) 2 puff INHALE RQ4H PRN PRN Reason: sob Benzocaine (Throat Lozenge, Medicated Lozenge) 1 lozenge MUCOUS MEM Q2H PRN PRN Reason: Sore Throat Benzonatate (Benzonatate 100 Mg Capsule) 100 mg PO TID PRN PRN Reason: Cough Last Admin: 09/29/24 19:51 Dose: 100 mg Documented By: GOPAL Benztropine Mesylate (Benztropine Mesylate 0.5 Mg Tablet) 0.5 mg PO BID [facility] Last Admin: 10/02/24 08:55 Dose: 0.5 mg Documented By: ARNEL Calcium Carbonate (Calcium Carbonate 750 Mg Tab.Chew) 750 mg PO Q4H PRN PRN Reason: Heartburn Clozapine (Clozapine 100 Mg Tablet) 100 mg PO BEDTIME [facility] Stop: 10/04/24 21:01 Last Admin: 10/01/24 20:05 Dose: 100 mg Documented By: ANNEL Divalproex Sodium (Divalproex Sodium Er 500 Mg Tab.Er.24h) 500 mg PO BID [facility] Last Admin: 10/02/24 08:55 Dose: 500 mg Documented By: ARNEL Docusate Sodium (Docusate Sodium 100 Mg Capsule) 100 mg PO BID PRN PRN Reason: Constipation Enoxaparin Sodium (Enoxaparin Sodium 40 Mg/0.4 Ml Syringe) 40 mg SUBCUT Q24H [facility] Last Admin: 10/02/24 04:54 Dose: 40 mg Documented By: ANNEL Guaifenesin (Guaifenesin La 600 Mg Tab.Er.12h) 1,200 mg PO BID PRN PRN Reason: Cough Last Admin: 10/01/24 08:11 Dose: 1,200 mg Documented By: LAPOINShalini Hydroxyzine HCl (Hydroxyzine Hcl 50 Mg Tablet) 50 mg PO Q4H PRN PRN Reason: Anxiety Levetiracetam (Levetiracetam 500 Mg Tablet) 500 mg PO BID [facility] Last Admin: 10/02/24 08:54 Dose: 500 mg Documented By: ARNEL Loperamide HCl (Loperamide Hcl 2 Mg Capsule) 2 mg PO Q6H PRN PRN Reason: Loose Stool Magnesium Hydroxide (Milk Of Magnesia 30 Ml Oral.Susp) 30 ml PO DAILY PRN PRN Reason: Constipation Melatonin (Melatonin 3 Mg Tablet) 6 mg PO BEDTIME PRN PRN Reason: Insomnia Last Admin: 09/28/24 21:12 Dose: 6 mg Documented By: RAMIRO Melatonin (Melatonin 3 Mg Tablet) 3 mg PO BEDTIME PRN PRN Reason: Insomnia Nicotine (Nicotine 21 Mg Patch.Td24) 21 mg TRANSDERMA DAILY PRN PRN Reason: nicotine withdrawl Ondansetron HCl (Ondansetron Hcl 4 Mg/2 Ml Vial) 4 mg IVPUSH Q8H PRN PRN Reason: Nausea and Vomiting Oseltamivir Phosphate (Oseltamivir Phosphate 75 Mg Capsule) 75 mg PO BID [facility] Stop: 10/02/24 21:01 Last Admin: 10/02/24 08:55 Dose: 75 mg Documented By: ARNEL Risperidone (Risperidone 2 Mg Tablet) 2 mg PO BEDTIME [facility] Last Admin: 10/01/24 20:05 Dose: 2 mg Documented By: ANNEL Senna (Sennosides 8.6 Mg Tablet) 17.2 mg PO DAILY PRN PRN Reason: Constipation Sodium Chloride (0.9 % Sodium Chloride Flush 3 Ml Syringe) 3 ml IVFLUSH QSHIFT [facility] Last Admin: 10/02/24 09:02 Dose: 3 ml Documented By: ARNEL Labs 09/30/24 05:19 09/30/24 05:19 Assessment and Plan (1) Metabolic encephalopathy: Status: Acute (2) Influenza A: Status: Acute (3) Sepsis: Status: Acute Assessment and Plan: 69-year-old female with a past medical history significant for paranoid schizophrenia, epilepsy, DVT not on anticoagulant, COPD, JENSEN no CPAP, HTN, HLD and GERD presented to the ED from [facility] due to altered mental status, weakness, lethargy and cough. Viral sepsis, acute hypoxic respiratory failure and acute metabolic encephalopathy secondary to influenza A WBC 4 tachycardic, tachypneic seems improved(viral sepsis seems improving). blood cultures x2 pending, lactic acid normal chest x-ray negative,flu A positive,CT negative,ammonia normal, UA negative LFTs mildly thought to be elevated sec to possible fatty liver disease. plan:continue Tamiflu ,taper oxygen,oob ,incentive sprio, chest physio, nebs prn Epilepsy - no evidence of recent seizure, lactic acid normal - continue Keppra 500 mg BID and Depakote 500 mg BID Schizophrenia/mood disorder - continue hydroxyzine 50 mg q.4h as needed for anxiety,, risperidone 2 mg bedtime, clozapine 100 mg at bedtime, benztropine 0.5 mg BID hx DVT - no LE edema or pleuritic chest pain - lovenox for VTE prophylaxis COPD, no acute exacerbation - no wheezing on exam JENSEN - no CPAP HTN - no home meds HLD - no home meds VTE prophy: lovenox ongoing need viral sepsis, acute hypoxic respiratory failure and metabolic encephalopathy-ongoing need for monitoring and titration off of oxygen, required for readmission to psychiatric facility. Quality Stroke Does the patient have a stroke diagnosis?: No VTE Prior VTE?: No VTE Risk Level:: Medical - moderate - high VTE Device Contraindication: Treatment Not Indicated VTE Drug Contraindication: N/A - Med Ordered
[2024-10-02] MEDS: cloZAPine 100 MG TABLET PO (19:51)
[2024-10-02] MEDS: risperiDONE 2 MG TABLET PO (19:52)
[2024-10-03] MEDS: Acetaminophen 325 MG TABLET 975 MG PO ×4 (01:50→20:36)
[2024-10-03] MEDS: Enoxaparin Sodium 40 MG/0.4 ML SYRINGE SUBCUT (01:51)
[2024-10-03 04:00] VITALS: BP 126/60; PULSE 82; RESP 18; TEMP 37.2; O2SAT 98
[2024-10-03 07:44] VITALS: BP 118/58; PULSE 63; RESP 18; TEMP 36.2; O2SAT 90
[2024-10-03] MEDS: Benztropine Mesylate 0.5 MG TABLET PO ×2 (08:45→20:36)
[2024-10-03] MEDS: Divalproex Sodium ER 500 MG TAB.ER.24H PO ×2 (08:45→20:36)
[2024-10-03] MEDS: 0.9 % Sodium Chloride Flush 3 ML SYRINGE IVFLUSH ×3 (08:45→20:35)
[2024-10-03] MEDS: levETIRAcetam 500 MG TABLET PO ×2 (08:45→20:36)
[2024-10-03 11:13] VITALS: BP 108/56; PULSE 81; RESP 16; TEMP 36.5; O2SAT 92
--- NOTE | 2024-10-03 15:10 | P.PNIM_ITS ---
Subjective Subjective Date of Service: 10/03/24 Interval History: metabolic encephalopathy,influenza A Review of Systems mental status seems to be improved. still hypoxic. Physical Exam 2 Vital Signs: Vital Signs: Last Vital Signs Temp 97.7 F 10/03/24 11:13 Pulse 81 10/03/24 11:13 Resp 16 10/03/24 11:13 BP 108/56 L 10/03/24 11:13 Pulse Ox 92 10/03/24 11:13 O2 Del Method Room Air 10/03/24 11:13 O2 Flow Rate 2 10/02/24 07:59 Oxygen Flow Rate 2 09/27/24 23:45 BMI result Body Mass Index 29.3 Appearance: Aawke,alert. cvs: rrr, [id number] res: air entry fair , no rales or wheezing. abd: soft,nt, bs present. ext pulses present , no cyanosis . neuro: nonfocal. Objective Data Active Medications Acetaminophen (Acetaminophen 325 Mg Tablet) 975 mg PO Q6H [facility] Last Admin: 10/03/24 08:45 Dose: 975 mg Documented By: ARNEL Albuterol Sulfate (Albuterol Sulfate 90 Mcg 8 Gm Inhaler) 2 puff INHALE RQ4H PRN PRN Reason: sob Benzocaine (Throat Lozenge, Medicated Lozenge) 1 lozenge MUCOUS MEM Q2H PRN PRN Reason: Sore Throat Benzonatate (Benzonatate 100 Mg Capsule) 100 mg PO TID PRN PRN Reason: Cough Last Admin: 09/29/24 19:51 Dose: 100 mg Documented By: GOPAL Benztropine Mesylate (Benztropine Mesylate 0.5 Mg Tablet) 0.5 mg PO BID [facility] Last Admin: 10/03/24 08:45 Dose: 0.5 mg Documented By: ARNEL Calcium Carbonate (Calcium Carbonate 750 Mg Tab.Chew) 750 mg PO Q4H PRN PRN Reason: Heartburn Clozapine (Clozapine 100 Mg Tablet) 100 mg PO BEDTIME [facility] Stop: 10/04/24 21:01 Last Admin: 10/02/24 19:51 Dose: 100 mg Documented By: ANNEL Divalproex Sodium (Divalproex Sodium Er 500 Mg Tab.Er.24h) 500 mg PO BID [facility] Last Admin: 10/03/24 08:45 Dose: 500 mg Documented By: ARNEL Docusate Sodium (Docusate Sodium 100 Mg Capsule) 100 mg PO BID PRN PRN Reason: Constipation Enoxaparin Sodium (Enoxaparin Sodium 40 Mg/0.4 Ml Syringe) 40 mg SUBCUT Q24H [facility] Last Admin: 10/03/24 01:51 Dose: 40 mg Documented By: ANNEL Guaifenesin (Guaifenesin La 600 Mg Tab.Er.12h) 1,200 mg PO BID PRN PRN Reason: Cough Last Admin: 10/01/24 08:11 Dose: 1,200 mg Documented By: LAPOINShalini Hydroxyzine HCl (Hydroxyzine Hcl 50 Mg Tablet) 50 mg PO Q4H PRN PRN Reason: Anxiety Levetiracetam (Levetiracetam 500 Mg Tablet) 500 mg PO BID [facility] Last Admin: 10/03/24 08:45 Dose: 500 mg Documented By: ARNEL Loperamide HCl (Loperamide Hcl 2 Mg Capsule) 2 mg PO Q6H PRN PRN Reason: Loose Stool Magnesium Hydroxide (Milk Of Magnesia 30 Ml Oral.Susp) 30 ml PO DAILY PRN PRN Reason: Constipation Melatonin (Melatonin 3 Mg Tablet) 6 mg PO BEDTIME PRN PRN Reason: Insomnia Last Admin: 09/28/24 21:12 Dose: 6 mg Documented By: RAMIRO Melatonin (Melatonin 3 Mg Tablet) 3 mg PO BEDTIME PRN PRN Reason: Insomnia Nicotine (Nicotine 21 Mg Patch.Td24) 21 mg TRANSDERMA DAILY PRN PRN Reason: nicotine withdrawl Ondansetron HCl (Ondansetron Hcl 4 Mg/2 Ml Vial) 4 mg IVPUSH Q8H PRN PRN Reason: Nausea and Vomiting Risperidone (Risperidone 2 Mg Tablet) 2 mg PO BEDTIME [facility] Last Admin: 10/02/24 19:52 Dose: 2 mg Documented By: ANNEL Senna (Sennosides 8.6 Mg Tablet) 17.2 mg PO DAILY PRN PRN Reason: Constipation Sodium Chloride (0.9 % Sodium Chloride Flush 3 Ml Syringe) 3 ml IVFLUSH QSHIFT [facility] Last Admin: 10/03/24 08:45 Dose: 3 ml Documented By: ARNEL Labs 09/30/24 05:19 09/30/24 05:19 Microbiology Microbiology Results: Microbiology 09/28/24 00:02 Blood Culture - Final Blood - Venous No growth after 5 days. 09/28/24 00:02 Blood Culture - Final Blood - Venous No growth after 5 days. Assessment and Plan (1) Metabolic encephalopathy: Status: Acute (2) Influenza A: Status: Acute (3) Sepsis: Status: Acute Assessment and Plan: 69-year-old female with a past medical history significant for paranoid schizophrenia, epilepsy, DVT not on anticoagulant, COPD, JENSEN no CPAP, HTN, HLD and GERD presented to the ED from [facility] due to altered mental status, weakness, lethargy and cough. Viral sepsis, acute hypoxic respiratory failure and acute metabolic encephalopathy secondary to influenza A WBC 4 tachycardic, tachypneic seems improved(viral sepsis seems improving). blood cultures x2 pending, lactic acid normal chest x-ray negative,flu A positive,CT negative,ammonia normal, UA negative LFTs mildly thought to be elevated sec to possible fatty liver disease. plan:continue Tamiflu ,oob ,incentive sprio, chest physio, nebs prn,hypoxia resolved . Epilepsy - no evidence of recent seizure, lactic acid normal - continue Keppra 500 mg BID and Depakote 500 mg BID Schizophrenia/mood disorder - continue hydroxyzine 50 mg q.4h as needed for anxiety,, risperidone 2 mg bedtime, clozapine 100 mg at bedtime, benztropine 0.5 mg BID hx DVT - no LE edema or pleuritic chest pain - lovenox for VTE prophylaxis COPD, no acute exacerbation - no wheezing on exam JENSEN - no CPAP HTN - no home meds HLD - no home meds VTE prophy: lovenox need to go to psych facility -awaiting Quality Stroke Does the patient have a stroke diagnosis?: No VTE Prior VTE?: No VTE Risk Level:: Medical - moderate - high VTE Device Contraindication: Treatment Not Indicated VTE Drug Contraindication: N/A - Med Ordered
[2024-10-03 15:19] VITALS: BP 116/58; PULSE 84; RESP 16; TEMP 36.4; O2SAT 93
[2024-10-03 20:00] VITALS: BP 123/58; PULSE 80; RESP 18; TEMP 36.6; O2SAT 92
[2024-10-03] MEDS: cloZAPine 100 MG TABLET PO (20:36)
[2024-10-03] MEDS: risperiDONE 2 MG TABLET PO (20:36)
[2024-10-03 23:35] VITALS: PULSE 105; RESP 18; TEMP 36.6; O2SAT 92
[2024-10-04] MEDS: Acetaminophen 325 MG TABLET 975 MG PO ×4 (04:54→21:18)
[2024-10-04] MEDS: Enoxaparin Sodium 40 MG/0.4 ML SYRINGE SUBCUT (04:55)
[2024-10-04 06:59] VITALS: BP 115/54; PULSE 87; RESP 16; TEMP 36.6; O2SAT 91
[2024-10-04] MEDS: 0.9 % Sodium Chloride Flush 3 ML SYRINGE IVFLUSH ×2 (08:59→21:18)
[2024-10-04] MEDS: levETIRAcetam 500 MG TABLET PO ×2 (09:19→21:18)
[2024-10-04] MEDS: Benztropine Mesylate 0.5 MG TABLET PO ×2 (09:19→21:19)
[2024-10-04] MEDS: Divalproex Sodium ER 500 MG TAB.ER.24H PO ×2 (09:19→21:19)
[2024-10-04 11:38] VITALS: BP 116/57; PULSE 88; RESP 16; TEMP 36.1; O2SAT 91
--- NOTE | 2024-10-04 15:02 | P.CNPS_ITS ---
History of Present Illness Date of Service: 10/04/24 Chief Complaint: INCREASED ALTERED MENTAL Reason for Consult: dispo Requesting physician: Violette Putnam Discussed with referring provider: Yes Sources of Information: patient interviewed, chart reviewed and crisis/core team assessment reviewed HPI Narrative: Mrs. Franco is a 69 year-old woman who was transferred from [facility] to [facility] ED due to weakness. In the ED, she was found to be hypoxic, positive for influenza type A. Care team asked to asses patient to determine whether patient still needs inpatient psychiatric level of care. Pt seen in her room. She reports she knows she is in the hospital but does not know the name or city. She does not know the month or year. She does not know why she came here, and as she realizes she can't provide this information, pt becomes somewhat irritable, stating don't you have this information?! She is not able to tell where she was prior to coming here to the hospital. She denies any plan or intent to harm herself. She reports she should go to [place], [place]. She reports she has a house, which is not verified and she currently lives in a rest home. She appears to confabulate at this point. She also has been observed taking to herself as internally preoccupied. Head CT shows right frontal side encephalomalacia from CVA. She is not combative nor aggressive but does have an irritable edge. Pt had a SAUCEDA Invega Sustenna which she was not able to get while at Rest Home but now she is taking po medication. Care team reached out to rest home director Deya who reports pt has very poor memory and needs more supports and they are working on LTC. [facility] Medical History (Updated 10/04/24 @ 15:20 by Mckayla Vaughn NP) GERD (gastroesophageal reflux disease) HLD (hyperlipidemia) HTN (hypertension) JENSEN (obstructive sleep apnea) COPD (chronic obstructive pulmonary disease) DVT (deep venous thrombosis) Epilepsy Schizophrenia Diagnostics Vital Signs (24Hr): Vital Signs - 24 hr 10/03/24 15:19 10/03/24 20:00 10/03/24 23:35 Temperature 97.5 F 97.9 F 97.8 F Pulse Rate 84 80 105 H Respiratory Rate 16 18 18 Blood Pressure 116/58 L 123/58 L Pulse Oximetry 93 92 92 Oxygen Delivery Method Room Air Room Air Room Air 10/04/24 06:59 10/04/24 11:38 Temperature 98 F 96.9 F Pulse Rate 87 88 Respiratory Rate 16 16 Blood Pressure 115/54 L 116/57 L Pulse Oximetry 91 L 91 L Oxygen Delivery Method Room Air Room Air BMI result Body Mass Index 29.3 Labs 09/30/24 05:19 09/30/24 05:19 Mental Status Exam Mental Status Exam Narrative: Appearance: wearing hospital gown, disheveled, malnourished, coughing at times Behavior: guarded as she realized some information she was not able to provide and this upsets her Psychomotor: no agitation or retardation noted Speech: mumbles, regular rate/rhythm/volume, spontaneous TP: confabulation TC: wanting to go to [place] Mood: okay Affect: congruent SI: denies HI: none VH/AH: appears internally preoccupied Delusions: combination of comfabulation with paranoid delusions Insight/judgment: impaired x 2. Memory/cog: alert oriented to idea that she is in the hospital but does not know the month, year or situation. severe cognitive impairments affecting capacity to make medical decisions. Medications Medications Current Medications Acetaminophen (Acetaminophen 325 Mg Tablet) 975 mg PO Q6H [facility] Last Admin: 10/04/24 09:18 Dose: 975 mg Albuterol Sulfate (Albuterol Sulfate 90 Mcg 8 Gm Inhaler) 2 puff INHALE RQ4H PRN PRN Reason: sob Benzocaine (Throat Lozenge, Medicated Lozenge) 1 lozenge MUCOUS MEM Q2H PRN PRN Reason: Sore Throat Benzonatate (Benzonatate 100 Mg Capsule) 100 mg PO TID PRN PRN Reason: Cough Last Admin: 09/29/24 19:51 Dose: 100 mg Benztropine Mesylate (Benztropine Mesylate 0.5 Mg Tablet) 0.5 mg PO BID [facility] Last Admin: 10/04/24 09:19 Dose: 0.5 mg Calcium Carbonate (Calcium Carbonate 750 Mg Tab.Chew) 750 mg PO Q4H PRN PRN Reason: Heartburn Clozapine (Clozapine 100 Mg Tablet) 100 mg PO BEDTIME [facility] Stop: 10/04/24 21:01 Last Admin: 10/03/24 20:36 Dose: 100 mg Divalproex Sodium (Divalproex Sodium Er 500 Mg Tab.Er.24h) 500 mg PO BID [facility] Last Admin: 10/04/24 09:19 Dose: 500 mg Docusate Sodium (Docusate Sodium 100 Mg Capsule) 100 mg PO BID PRN PRN Reason: Constipation Enoxaparin Sodium (Enoxaparin Sodium 40 Mg/0.4 Ml Syringe) 40 mg SUBCUT Q24H [facility] Last Admin: 10/04/24 04:55 Dose: 40 mg Guaifenesin (Guaifenesin La 600 Mg Tab.Er.12h) 1,200 mg PO BID PRN PRN Reason: Cough Last Admin: 10/01/24 08:11 Dose: 1,200 mg Hydroxyzine HCl (Hydroxyzine Hcl 50 Mg Tablet) 50 mg PO Q4H PRN PRN Reason: Anxiety Levetiracetam (Levetiracetam 500 Mg Tablet) 500 mg PO BID [facility] Last Admin: 10/04/24 09:19 Dose: 500 mg Loperamide HCl (Loperamide Hcl 2 Mg Capsule) 2 mg PO Q6H PRN PRN Reason: Loose Stool Magnesium Hydroxide (Milk Of Magnesia 30 Ml Oral.Susp) 30 ml PO DAILY PRN PRN Reason: Constipation Melatonin (Melatonin 3 Mg Tablet) 6 mg PO BEDTIME PRN PRN Reason: Insomnia Last Admin: 09/28/24 21:12 Dose: 6 mg Melatonin (Melatonin 3 Mg Tablet) 3 mg PO BEDTIME PRN PRN Reason: Insomnia Nicotine (Nicotine 21 Mg Patch.Td24) 21 mg TRANSDERMA DAILY PRN PRN Reason: nicotine withdrawl Ondansetron HCl (Ondansetron Hcl 4 Mg/2 Ml Vial) 4 mg IVPUSH Q8H PRN PRN Reason: Nausea and Vomiting Risperidone (Risperidone 2 Mg Tablet) 2 mg PO BEDTIME [facility] Last Admin: 10/03/24 20:36 Dose: 2 mg Senna (Sennosides 8.6 Mg Tablet) 17.2 mg PO DAILY PRN PRN Reason: Constipation Sodium Chloride (0.9 % Sodium Chloride Flush 3 Ml Syringe) 3 ml IVFLUSH QSHIFT [facility] Last Admin: 10/04/24 08:59 Dose: 3 ml Allergies Allergies Allergy/AdvReac Type Severity Reaction Status Date / Time codeine Allergy Unknown Verified 09/27/24 23:49 Assessment & Plan Assessment & Plan (1) Schizophrenia: Status: Acute Code(s): F20.9 - Schizophrenia, unspecified Assessment and Plan: baseline psychosis. no agitation or aggression. (2) Major neurocognitive disorder: Status: Acute Code(s): F03.90 - Unspecified dementia, unspecified severity, without behavioral disturbance, psychotic disturbance, mood disturbance, and anxiety Plan Ms. Franco is a 69 year-old woman who was brought from [facility] to [facility] ED due to weakness, found to have hypoxia s/s to influenza type A. Psychiatry consulted to determine disposition. Pt presents as very impaired but mostly due to severe cognitive and memory impairments affecting her ability to retain information, orientation. She does have hx of CVA which cause significant damage to right frontal side of her brain. She does have some psychosis which seems to be baseline. Collateral information from [facility]'s director Deya (obtained by care team), pt's memory very impaired and they are working on transitioning to SNF or memory unit. PLAN 1. No imminent safety concern in terms of acute psychiatric symptoms or aggression or combative behaviors that will be expected to improve at inpatient psychiatric unit. 2. Underlying cognitive impairments will affect her ability to function and will not improve with IPLOC. 3. This was discussed with [facility] director to continue working in the community on LTC Total time managing care of this patient today ____ minutes.
--- NOTE | 2024-10-04 15:28 | MHC.CM.PN ---
Per patient medically cleared. [facility] unable to accept back without new referral. CARE team dorota pratt, does not meet IPLOC. Psych consult pending. Goal is return to [facility]. CM spoke w/ Deya, rest home energy inspector. States patient has been primarily in hospitals since May 2024, but her bed has been paid for by social security and she is a bed hold. Reports some concern for previous wandering at night. Patient is not an elopement risk at this time and has no reports of behavioral concerns. Patient is able to return to rest home. Per Deya, the rest home can assist w/ [facility] and LTC placement should it be needed in the future. Per Deya, HCP is friend Carmita. She will fax a copy. CM will continue to follow.
[2024-10-04 15:31] VITALS: BP 131/59; PULSE 88; RESP 18; TEMP 36.8; O2SAT 93
--- NOTE | 2024-10-04 16:35 | P.PNIM_ITS ---
Subjective Subjective Date of Service: 10/04/24 Interval History: metabolic encephalopathy,influenza A Review of Systems mental status seems to be improving to near baseline still hypoxic. Physical Exam 2 Vital Signs: Vital Signs: Last Vital Signs Temp 98.3 F 10/04/24 15:31 Pulse 88 10/04/24 15:31 Resp 18 10/04/24 15:31 BP 131/59 L 10/04/24 15:31 Pulse Ox 93 10/04/24 15:31 O2 Del Method Room Air 10/04/24 15:31 O2 Flow Rate 2 10/02/24 07:59 Oxygen Flow Rate 2 09/27/24 23:45 BMI result Body Mass Index 29.3 Appearance: Aawke,alert. cvs: rrr, [id number] res: air entry fair , no rales or wheezing. abd: soft,nt, bs present. ext pulses present , no cyanosis . neuro: nonfocal. Objective Data Active Medications Acetaminophen (Acetaminophen 325 Mg Tablet) 975 mg PO Q6H [facility] Last Admin: 10/04/24 15:28 Dose: 975 mg Documented By: MARY Albuterol Sulfate (Albuterol Sulfate 90 Mcg 8 Gm Inhaler) 2 puff INHALE RQ4H PRN PRN Reason: sob Benzocaine (Throat Lozenge, Medicated Lozenge) 1 lozenge MUCOUS MEM Q2H PRN PRN Reason: Sore Throat Benzonatate (Benzonatate 100 Mg Capsule) 100 mg PO TID PRN PRN Reason: Cough Last Admin: 09/29/24 19:51 Dose: 100 mg Documented By: GOPAL Benztropine Mesylate (Benztropine Mesylate 0.5 Mg Tablet) 0.5 mg PO BID [facility] Last Admin: 10/04/24 09:19 Dose: 0.5 mg Documented By: MARY Calcium Carbonate (Calcium Carbonate 750 Mg Tab.Chew) 750 mg PO Q4H PRN PRN Reason: Heartburn Clozapine (Clozapine 100 Mg Tablet) 100 mg PO BEDTIME [facility] Stop: 10/04/24 21:01 Last Admin: 10/03/24 20:36 Dose: 100 mg Documented By: ANNEL Divalproex Sodium (Divalproex Sodium Er 500 Mg Tab.Er.24h) 500 mg PO BID [facility] Last Admin: 10/04/24 09:19 Dose: 500 mg Documented By: MARY Docusate Sodium (Docusate Sodium 100 Mg Capsule) 100 mg PO BID PRN PRN Reason: Constipation Enoxaparin Sodium (Enoxaparin Sodium 40 Mg/0.4 Ml Syringe) 40 mg SUBCUT Q24H [facility] Last Admin: 10/04/24 04:55 Dose: 40 mg Documented By: ANNEL Guaifenesin (Guaifenesin La 600 Mg Tab.Er.12h) 1,200 mg PO BID PRN PRN Reason: Cough Last Admin: 10/01/24 08:11 Dose: 1,200 mg Documented By: LAPOINShalini Hydroxyzine HCl (Hydroxyzine Hcl 50 Mg Tablet) 50 mg PO Q4H PRN PRN Reason: Anxiety Levetiracetam (Levetiracetam 500 Mg Tablet) 500 mg PO BID [facility] Last Admin: 10/04/24 09:19 Dose: 500 mg Documented By: MARY Loperamide HCl (Loperamide Hcl 2 Mg Capsule) 2 mg PO Q6H PRN PRN Reason: Loose Stool Magnesium Hydroxide (Milk Of Magnesia 30 Ml Oral.Susp) 30 ml PO DAILY PRN PRN Reason: Constipation Melatonin (Melatonin 3 Mg Tablet) 6 mg PO BEDTIME PRN PRN Reason: Insomnia Last Admin: 09/28/24 21:12 Dose: 6 mg Documented By: RAMIRO Melatonin (Melatonin 3 Mg Tablet) 3 mg PO BEDTIME PRN PRN Reason: Insomnia Nicotine (Nicotine 21 Mg Patch.Td24) 21 mg TRANSDERMA DAILY PRN PRN Reason: nicotine withdrawl Ondansetron HCl (Ondansetron Hcl 4 Mg/2 Ml Vial) 4 mg IVPUSH Q8H PRN PRN Reason: Nausea and Vomiting Risperidone (Risperidone 2 Mg Tablet) 2 mg PO BEDTIME [facility] Last Admin: 10/03/24 20:36 Dose: 2 mg Documented By: ANNEL Senna (Sennosides 8.6 Mg Tablet) 17.2 mg PO DAILY PRN PRN Reason: Constipation Sodium Chloride (0.9 % Sodium Chloride Flush 3 Ml Syringe) 3 ml IVFLUSH QSHIFT [facility] Last Admin: 10/04/24 15:47 Dose: Not Given Documented By: MARY Non-Admin Reason: Previously Administered Labs 09/30/24 05:19 09/30/24 05:19 Assessment and Plan (1) Influenza A: Status: Acute Plan 69-year-old female with a past medical history significant for paranoid schizophrenia, epilepsy, DVT not on anticoagulant, COPD, JENSEN no CPAP, HTN, HLD and GERD presented to the ED from [facility] due to altered mental status, weakness, lethargy and cough. Viral sepsis, acute hypoxic respiratory failure and acute metabolic encephalopathy secondary to influenza A WBC 4 tachycardic, tachypneic seems improved(viral sepsis seems improving). blood cultures x2 pending, lactic acid normal chest x-ray negative,flu A positive,CT negative,ammonia normal, UA negative LFTs mildly thought to be elevated sec to possible fatty liver disease. plan:continue Tamiflu ,oob ,incentive sprio, chest physio, nebs prn,hypoxia resolved . Epilepsy - no evidence of recent seizure, lactic acid normal - continue Keppra 500 mg BID and Depakote 500 mg BID Schizophrenia/mood disorder - continue hydroxyzine 50 mg q.4h as needed for anxiety,, risperidone 2 mg bedtime, clozapine 100 mg at bedtime, benztropine 0.5 mg BID hx DVT - no LE edema or pleuritic chest pain - lovenox for VTE prophylaxis COPD, no acute exacerbation - no wheezing on exam JENSEN - no CPAP HTN - no home meds HLD - no home meds VTE prophy: lovenox need to go to rest home -might need LTP Quality Stroke Does the patient have a stroke diagnosis?: No VTE Prior VTE?: No VTE Risk Level:: Medical - moderate - high VTE Device Contraindication: Treatment Not Indicated VTE Drug Contraindication: N/A - Med Ordered
[2024-10-04 19:33] VITALS: BP 118/58; PULSE 87; RESP 18; TEMP 36.6; O2SAT 92
[2024-10-04] MEDS: cloZAPine 100 MG TABLET PO (21:18)
[2024-10-04] MEDS: risperiDONE 2 MG TABLET PO (21:19)
[2024-10-04 23:42] VITALS: BP 121/58; PULSE 78; RESP 16; TEMP 36.1; O2SAT 93
[2024-10-05] MEDS: Enoxaparin Sodium 40 MG/0.4 ML SYRINGE SUBCUT (03:12)
[2024-10-05 03:36] VITALS: BP 119/56; PULSE 76; RESP 14; TEMP 36.2; O2SAT 93
[2024-10-05 06:59] VITALS: BP 112/54; PULSE 77; RESP 18; TEMP 36.7; O2SAT 92
--- NOTE | 2024-10-05 07:37 | PM.DS ---
DS: Providers Provider Date of Service: 10/05/24 Date of admission: 09/28/24 02:02 Date of discharge: 10/05/24 Primary care physician: Unknown Physician Consults: 10/04/24 11:15 Inpt CARE Team Crisis Consult Routine Comment: Reason for consultation: medically clear ,need to go back to psych facility 10/04/24 12:45 Consult to Psychiatry Routine Consulting Provider: [facility] [place] [facility] Psych Covering Reason for consultation: schizophrenia Has provider been notified: No Attending physician on discharge: Violette Putnam Discharging clinician: Violette Putnam DS: Diagnosis Discharge Diagnosis (1) Influenza A: Status: Acute DS: Summary Hospital Course Hospital Course: HPI:69-year-old female with a past medical history significant for paranoid schizophrenia, epilepsy, DVT not on anticoagulant, COPD, JENSEN no CPAP, HTN, HLD and GERD who presented to the ED from [facility] due to altered mental status, weakness, lethargy and cough. They reported the patient has been incontinent of urine starting yesterday but felt that it was not related to seizures or more likely related to weakness due to illness. Patient denies any urinary symptoms including frequency, urgency or dysuria. She is intermittently confused. She reports a productive cough, sputum color unknown. There is a subjective fever of 101 measured at [facility]. She denies any headache, rhinorrhea, sore throat, ear pain, chest pain, nausea, vomiting, abdominal pain. Patient is unable to return to [facility] until she is off of oxygen, currently requiring 2 L via nasal cannula. Hospital course: 69-year-old female with a past medical history significant for paranoid schizophrenia, epilepsy, DVT not on anticoagulant, COPD, JENSEN no CPAP, HTN, HLD and GERD presented to the ED from [facility] due to altered mental status, weakness, lethargy and cough: admitted for Viral sepsis, acute hypoxic respiratory failure and acute metabolic encephalopathy secondary to influenza A: workup with lactic acid normal,chest x-ray negative,flu A positive,CT head negative,ammonia normal, UA negative,blood cultures sent , in addition patient started on tamiflu ,cough medication and incentive spirometry : patient symptoms seems resolved,blood cultures@negative at 5 days ,urine cultures-mixed,possible urongential contamination. completed tamiflu. mild elevated lft -thorught be likely fatty liver dis/recent viral sickness -moniter lft's and further workup outpatient. mild leucopenia and thrombocytopenia:likely in setting of influenza , thrombocytopenia improving,moniter cbc outpatient. patient seems improved with above suppotive care , hypoxia resolved. Seen by both care team and psych -cleared for discharge to rest home :1.No imminent safety concern in terms of acute psychiatric symptoms or aggression or combative behaviors that will be expected to improve at inpatient psychiatric unit. 2. Underlying cognitive impairments will affect her ability to function and will not improve with IPLOC. 3. This was discussed with rest home director to continue working in the community on LTC. plan: moniter cbc ,cmp as above . added cough medication and and incentive spirometry . Assessment and plan coordination time spent 40 minutes . Time Attestation Total time managing care of this patient today: 40 mintues. Discharge Coordination Time (in mins): 40 min Quality: Safe Use of Opioids Does Pt have an Active Cancer Diagnosis on the Problem List?: No Quality: Stroke Does the patient have a stroke diagnosis?: No Physical Exam Vital Signs: Vital Signs: Last Vital Signs Temp 98.1 F 10/05/24 06:59 Pulse 77 10/05/24 06:59 Resp 18 10/05/24 06:59 BP 112/54 L 10/05/24 06:59 Pulse Ox 92 10/05/24 06:59 O2 Del Method Room Air 10/05/24 06:59 O2 Flow Rate 2 10/02/24 07:59 Oxygen Flow Rate 2 09/27/24 23:45 BMI result Body Mass Index 29.3 Appearance: Aawke,alert, at baseline. cvs: rrr, [id number] res: air entry fair , no rales or wheezing. abd: soft,nt, bs present. ext pulses present , no cyanosis . neuro: nonfocal. DS: Data Imaging Chest x-ray: My impression: head ct:IMPRESSION: 1. No acute intracranial findings. 2. Encephalomalacia in the right frontal lobe consistent with prior stroke. cxr: Findings: The lungs are clear. Normal size heart. No acute fracture. Discharge Plan Discharge Anticipated Discharge Date/Time: 10/05/24 07:11 Patient Disposition: Home, Self-Care Discharge Diagnosis: metabolic encephalopathy,acute hypoxemic respiratory failure sec to influenza A Referrals: Physician,Unknown J [Primary Care Provider] - 1 Week Discharge Medications: New benzonatate 100 mg Capsule 100 mg PO TID PRN (Reason: Cough) Qty: 7 0RF Continued sennosides [senna] 8.6 mg Tablet 17.2 mg PO DAILY PRN (Reason: Constipation) Rx Instructions: second line acetaminophen 325 mg Tablet 650 mg PO Q4H PRN (Reason: Fever Or Pain) benztropine 0.5 mg tablet 0.5 mg PO BID loperamide 2 mg Capsule 2 mg PO DIRECTED MDD 16 mg PRN (Reason: Loose Stool) nicotine (polacrilex) 2 mg Gum 2 mg BUCCAL Q2H MDD 24 pieces PRN (Reason: withdrawl) levetiracetam 500 mg tablet 500 mg PO Q12H hydroxyzine pamoate 50 mg Capsule 50 mg PO Q4H PRN (Reason: moderate to severe anxiety) melatonin 3 mg Tablet 3 mg PO BEDTIME PRN (Reason: Insomnia) risperidone 2 mg Tablet 2 mg PO BEDTIME magnesium hydroxide 400 mg/5 mL Suspension 30 ml PO DAILY PRN (Reason: Constipation) divalproex 500 mg tablet extended release 24 hr 500 mg PO Q12H ibuprofen 400 mg Tablet 400 mg PO Q8H PRN (Reason: body-ache, toothache, headache) nicotine 21 mg/24 hr Patch 24 Hour 1 patch TRANSDERMAL DAILY PRN (Reason: nicotine withdrawl) Rx Instructions: remove at bedtime docusate sodium 100 mg Capsule 100 mg PO BID PRN (Reason: Constipation) calcium carbonate 500 mg calcium (1,250 mg) Tablet,Chewable 500 mg PO Q4H PRN (Reason: Heartburn) alum-mag hydroxide-simeth 200-200-20 mg/5 mL Suspension 30 ml PO QID PRN (Reason: GI Upset) Rx Instructions: administer between meals and at bedtime ondansetron 4 mg Tablet,Disintegrating 4 mg PO Q6H PRN (Reason: Nausea And Vomiting) benzocaine-menthol 15-3.6 mg Lozenge 1 dimple MUCOUS MEMBRANE Q2H PRN (Reason: Sore Throat) guaifenesin 600 mg Tablet Extended Release 12hr 1,200 mg PO BID MDD 2400 mg PRN (Reason: Cough) Discharge Orders: Discharge Order (Routine); Ordered 10/05/24 Ordered By: Violette Putnam Diet: Advance to usual diet Activity on Discharge: As tolerated Stand Alone Forms: Patient Portal Discharge page Print Language: Mohawk Care Plan Goals: 69-year-old female with a past medical history significant for paranoid schizophrenia, epilepsy, DVT not on anticoagulant, COPD, JENSEN no CPAP, HTN, HLD and GERD presented to the ED from [facility] inpatient psych due to altered mental status, weakness, lethargy and cough: admitted for Viral sepsis, acute hypoxic respiratory failure and acute metabolic encephalopathy secondary to influenza A: workup with lactic acid normal,chest x-ray negative,flu A positive,CT head negative,ammonia normal, UA negative,blood cultures sent , in addition patient started on tamiflu ,cough medication and incentive spirometry : patient symptoms seems resolved,blood cultures@negative at 5 days ,urine cultures-mixed,possible urongential contamination. mild elevated lft -thorught be likely fatty liver dis/recent viral sickness -moniter lft's and further workup outpatient. mild leucopenia and thrombocytopenia:likely in setting of influenza , thrombocytopenia improving,moniter cbc outpatient. patient seems improved with above suppotive care , hypoxia resolved. Seen by both care team and psych -cleared for discharge to rest home :1.No imminent safety concern in terms of acute psychiatric symptoms or aggression or combative behaviors that will be expected to improve at inpatient psychiatric unit. 2. Underlying cognitive impairments will affect her ability to function and will not improve with IPLOC. 3. This was discussed with rest home director to continue working in the community on LTC. Health Concerns: as above. Plan of Treatment: as above. moniter cbc ,cmp as above . added cough medications. Assessment: as above.
--- NOTE | 2024-10-05 08:52 | MHC.CM.PN ---
Addendum entered by Nichol Ennis RN 10/05/24 08:58: Deya, rest home appliance technician, aware. Original Note: Per MD, patient medically cleared for dc. Per psych & CARE, cleared and does not need IPLOC. Reviewed case w/ CM director. Will dc back to [facility] via BLS. Discussed dc w/ HCP/friend Carmita per patient request. IMM delivered.
[2024-10-05] MEDS: Divalproex Sodium ER 500 MG TAB.ER.24H PO (09:00)
[2024-10-05] MEDS: levETIRAcetam 500 MG TABLET PO (09:00)
[2024-10-05] MEDS: Benztropine Mesylate 0.5 MG TABLET PO (09:00)
[2024-10-05] MEDS: Acetaminophen 325 MG TABLET 975 MG PO (09:00)
[2024-10-05] MEDS: 0.9 % Sodium Chloride Flush 3 ML SYRINGE IVFLUSH (09:02)
[2024-10-05 10:18] VITALS: BP 117/56; PULSE 92; RESP 16; TEMP 36.6; O2SAT 96
== END 2024-10-05 10:30 | disposition home or self-care (01) | DRG 871 ==
LOC: HO.ED 09-28 02:08 → HO.EDOVER 09-28 02:11 → HO.S3 09-29 19:07
PROVIDERS: Nurse Practitioner Family; Admitting Provider Physician Assistant; Emergency Provider Emergency Medicine Emergency Medical Services; Visit Provider Internal Medicine
DX: A41.89 Other specified sepsis (principal); J96.01 Acute respiratory failure with hypoxia; F20.0 Paranoid schizophrenia; I10 Essential (primary) hypertension; J44.9 Chronic obstructive pulmonary disease, unspecified; E78.5 Hyperlipidemia, unspecified; G47.33 Obstructive sleep apnea (adult) (pediatric); J10.81 Influenza due to other identified influenza virus with encephalopathy; G40.909 Epilepsy, unspecified, not intractable, without status epilepticus; Z86.718 Personal history of other venous thrombosis and embolism; Z79.899 Other long term (current) drug therapy
CPT/HCPCS: 0241U; 36415; 70450; 71045; 80048; 80053; 80076; 80143; 80179; 80307; 81001; 82140; 83605; 83690; 83735; 85025; 85610; 87040; 87086; 93005; 99285; J1650; S9485

== ENCOUNTER → 2024-09-27 23:38 | Outpatient (BNV) | payer MEDICARE, MEDICAID, SELFPAY | PROVIDERS: Emergency Provider Emergency Medicine Emergency Medical Services; Visit Provider Radiology Diagnostic Radiology | DX: R53.1 Weakness (principal); R41.82 Altered mental status, unspecified | CPT/HCPCS: 71045 ==

== ENCOUNTER → 2024-09-27 | Outpatient (BNV) | payer MEDICARE, MEDICAID, SELFPAY | PROVIDERS: Admitting Provider Physician Assistant; Emergency Provider Emergency Medicine Emergency Medical Services; Visit Provider Internal Medicine Cardiovascular Disease | DX: R53.83 Other fatigue (principal) | CPT/HCPCS: 93010 ==

== ENCOUNTER → 2024-09-28 02:02 | Outpatient (BNV) | payer MEDICARE, MEDICAID, SELFPAY | PROVIDERS: Admitting Provider Physician Assistant; Emergency Provider Emergency Medicine Emergency Medical Services; Visit Provider Physician Assistant | DX: J09.X2 Influenza due to identified novel influenza A virus with other respiratory manifestations (principal) | CPT/HCPCS: 99239 ==

== ENCOUNTER → 2024-09-28 02:02 | Outpatient (BNV) | payer MEDICARE, SELFPAY | PROVIDERS: Admitting Provider Physician Assistant; Emergency Provider Emergency Medicine Emergency Medical Services; Visit Provider Social Worker | DX: F20.9 Schizophrenia, unspecified (principal); F03.90 Unspecified dementia, unspecified severity, without behavioral disturbance, psychotic disturbance, mood disturbance, and anxiety | CPT/HCPCS: 99232 ==

== ENCOUNTER → 2024-09-28 | Outpatient (BNV) | payer MEDICARE, MEDICAID, SELFPAY | PROVIDERS: Emergency Provider Emergency Medicine Emergency Medical Services; Visit Provider Radiology Diagnostic Radiology | DX: I69.30 Unspecified sequelae of cerebral infarction (principal) | CPT/HCPCS: 70450 ==